=== PATIENT | male | born 1980 | race Caucasian/White ===

== ENCOUNTER 2016-10-26 01:38 | Emergency (ER) | payer OTHER ==
[~2016-10-26] VITALS: Ht 190.5 cm; Wt 127.1 kg
[2016-10-26 01:43] VITALS: TEMP 36.5; Ht 190.5 cm; Wt 127.1 kg
[2016-10-26] MEDS ORDERED: SODIUM CHLORIDE 0.9% 1000ML 2,000 ML IV STA (01:50)
[2016-10-26 02:01] VITALS: O2SAT 93
[2016-10-26 02:23] LABS: BASO % 0.5 %; BASO ABS # 0.03 K/uL (0-0.2); COMPLETE YES; EOS % 3.5 %; HEMATOCRIT 38.3 % (42-52); IG% 0.5 %; LYMPH % 27.4 %; LYMPH ABS # 1.71 K/uL (1.2-3.4); MEAN CELL VOLUME 85.5 fL (80-100); MEAN CORPUSCULAR HEMOGLOBIN 29.7 pg (25-34); MEAN CORPUSCULAR HGB CONC 34.7 g/dl (32-36); MEAN PLATELET VOLUME 10.8 fL (7.4-10.4); MONO % 5.9 %; NEUT % 62.2 %; PLATELET COUNT 215 K/uL (130-400); RED BLOOD COUNT 4.48 M/uL (4.7-6.1); WHITE BLOOD COUNT 6.23 K/uL (4.8-10.8)
[2016-10-26 02:42] LABS: ALT/SGPT 65 U/L (12-78); BLOOD UREA NITROGEN 15 mg/dl (7-18); BUN/CREATININE RATIO 15.6 (10-20); CALCIUM 8.2 mg/dl (8.5-10.1); CARBON DIOXIDE 25 mmol/L (21-32); CHLORIDE 105 mmol/L (98-107); CREATININE 0.99 mg/dl (0.60-1.40); GLUCOSE 134 mg/dl (70-99); SODIUM 142 mmol/L (136-145)
[2016-10-26 02:45] LABS: POTASSIUM 3.7 mmol/L (3.5-5.1)
[2016-10-26 02:46] LABS: ALKALINE PHOSPHATASE 50 U/L (45-117)
[2016-10-26 02:51] LABS: AST/SGOT 33 U/L (15-37); MAGNESIUM 2.2 mg/dl (1.8-2.4)
[2016-10-26 02:54] LABS: ACETAMINOPHEN < 2 ug/ml (10-30)
[2016-10-26 04:14] LABS: URINE APPEARANCE CLEAR (CLEAR); URINE BILIRUBIN NEG (NEG); URINE COLOR YELLOW; URINE NITRITE NEG (NEG); URINE SPECIFIC GRAVITY 1.023 (1.000-1.030); UROBILINOGEN NEG (NEG); ZZUR CULT IF INDIC CLEAN CATCH NO
--- NOTE | 2016-10-26 04:15 | EMERGENCY ROOM VISIT NOTE ---
History Report prepared by Marisolibmunira: Katheryn Delatorre Under the Supervision of: Dr. Martina Dale M.D. First contact with patient: 01:48 Chief Complaint: OVERDOSE (ACCIDENTAL) Stated Complaint: OVERDOSE Nursing Triage Summary: pt found at home on the toilet unresponsive by girlfriend. upon police arrival pt was unresponsive and cyanotic. EMS arrival pt with agonal breathing, administered 1mg Narcan spray in each nostril. pt awoke and was oriented. pt admits to being out drinking tonight. states he had 4 drinks and found 2 bags of heroin in the bathroom. pt states he snorted both bags tonight. hx heroin use over 1 year ago 5-10 bags per day then. has been clean for over a year. denies trying to hurt himself History of Present Illness The patient is a 36 year old male who presents to the Emergency Room via EMS to be evaluated for a heroin overdose this evening. Per nursing staff, the patient found two bags of heroin at a bar while drinking alcohol. When he went home, he snorted both bags on the toilet. The patient admits that he was under the influence of alcohol and thought that it was a good idea. He was found unresponsive on the toilet by his girlfriend. Upon EMS arrival, the patient was unresponsive and EMS administered a spray of Narcan in each nostril. The patient woke up at that time and was brought to the ED. There was no CPR involved. The patient admits that he has a history of drug use, but he has not used hard drugs in over 5 years. He admits to using some marijuana a couple of days ago. Currently, he is feeling very thirsty but otherwise has no complaints. He was not trying to hurt himself by using the heroin. Source of History: patient, nursing staff Onset: today Position: other (Global) Quality: other (heroin) Timing: other (episode) Modifying Factors (Relieving): other (Narcan) Note: Other symptoms: thirsty Review of Systems See HPI for pertinent positives & negatives. A total of 10 systems reviewed and were otherwise negative. Past Medical & Surgical Medical Problems: (1) Dental caries (2) Impetigo (3) Pharyngitis Family History Patient reports no known family medical history. Social History Smoking Status: Never Smoker Alcohol Use: occasionally Drug Use: heroin, marijuana Marital Status: in relationship Occupation Status: employed Current/Historical Medications No Active Prescriptions or Reported Meds Allergies Coded Allergies: No Known Allergies (Unverified , 10/20/14) Physical Exam Vital Signs Date Time Temp Pulse Resp B/P Pulse Ox O2 Delivery O2 Flow Rate FiO2 10/26/16 05:43 83 18 120/59 96 10/26/16 05:00 77 13 151/75 93 Room Air 2.0 10/26/16 04:27 88 12 137/74 93 Room Air 2.0 10/26/16 02:47 103 18 114/61 94 Room Air 2.0 10/26/16 02:01 93 Nasal Cannula 2.0 10/26/16 02:01 88 Room Air 10/26/16 01:54 105 10/26/16 01:43 36.5 112 18 115/76 93 Room Air 10/26/16 01:43 93 Room Air 10/26/16 01:41 88 12 115/76 94 Nasal Cannula 2.0 Physical Exam Vital signs reviewed. General: Well-appearing 36 year old male, in no significant distress. HEENT: No scleral icterus, PERRLA, neck supple. Atraumatic. Cardiovascular: Regular rate and rhythm, no extra sounds. Pulmonary: Clear to auscultation bilaterally, normal work of breathing. Abdomen: Soft, nontender, nondistended, positive bowel sounds. Musculoskeletal: Atraumatic, no peripheral edema. Neurologic: Patient sedate but awakens to verbal stimuli, oriented x 3, full strength in all 4 extremities. Cranial nerves 2 through 12 grossly intact. Skin: Warm, dry, no rash Medical Decision & Procedures Laboratory Results 10/26/16 02:05 Red Blood Count 4.48, Mean Corpuscular Volume 85.5, Mean Corpuscular Hemoglobin 29.7, Mean Corpuscular Hemoglobin Concent 34.7, Mean Platelet Volume 10.8, Neutrophils (%) (Auto) 62.2, Lymphocytes (%) (Auto) 27.4, Monocytes (%) (Auto) 5.9, Eosinophils (%) (Auto) 3.5, Basophils (%) (Auto) 0.5, Neutrophils # (Auto) 3.87, Lymphocytes # (Auto) 1.71, Monocytes # (Auto) 0.37, Eosinophils # (Auto) 0.22, Basophils # (Auto) 0.03 10/26/16 02:05 Test 10/26/16 02:05 10/26/16 04:00 White Blood Count 6.23 K/uL (4.8-10.8) Red Blood Count 4.48 M/uL (4.7-6.1) Hemoglobin 13.3 g/dL (14.0-18.0) Hematocrit 38.3 % (42-52) Mean Corpuscular Volume 85.5 fL (80-100) Mean Corpuscular Hemoglobin 29.7 pg (25-34) Mean Corpuscular Hemoglobin Concent 34.7 g/dl (32-36) Platelet Count 215 K/uL (130-400) Mean Platelet Volume 10.8 fL (7.4-10.4) Neutrophils (%) (Auto) 62.2 % Lymphocytes (%) (Auto) 27.4 % Monocytes (%) (Auto) 5.9 % Eosinophils (%) (Auto) 3.5 % Basophils (%) (Auto) 0.5 % Neutrophils # (Auto) 3.87 K/uL (1.4-6.5) Lymphocytes # (Auto) 1.71 K/uL (1.2-3.4) Monocytes # (Auto) 0.37 K/uL (0.11-0.59) Eosinophils # (Auto) 0.22 K/uL (0-0.5) Basophils # (Auto) 0.03 K/uL (0-0.2) RDW Standard Deviation 40.8 fL (36.4-46.3) RDW Coefficient of Variation 13.1 % (11.5-14.5) Immature Granulocyte % (Auto) 0.5 % Immature Granulocyte # (Auto) 0.03 K/uL (0.00-0.02) Anion Gap 12.0 mmol/L (3-11) Est Creatinine Clear Calc Drug Dose 151.0 ml/min Estimated GFR () 114.7 Estimated GFR (Non- 99.0 BUN/Creatinine Ratio 15.6 (10-20) Calcium Level 8.2 mg/dl (8.5-10.1) Magnesium Level 2.2 mg/dl (1.8-2.4) Total Bilirubin 0.4 mg/dl (0.2-1) Direct Bilirubin < 0.1 mg/dl (0-0.2) Aspartate Amino Transf (AST/SGOT) 33 U/L (15-37) Alanine Aminotransferase (ALT/SGPT) 65 U/L (12-78) Alkaline Phosphatase 50 U/L (45-117) Total Protein 7.1 gm/dl (6.4-8.2) Albumin 4.0 gm/dl (3.4-5.0) Salicylates Level < 1.7 mg/dl (2.8-20) Acetaminophen Level < 2 ug/ml (10-30) Ethyl Alcohol mg/dL 22.0 mg/dl (0-3) Urine Color YELLOW Urine Appearance CLEAR (CLEAR) Urine pH 5.0 (4.5-7.5) Urine Specific [place] 1.023 (1.000-1.030) Urine Protein TRACE (NEG) Urine Glucose (UA) NEG (NEG) Urine Ketones NEG (NEG) Urine Occult Blood NEG (NEG) Urine Nitrite NEG (NEG) Urine Bilirubin NEG (NEG) Urine Urobilinogen NEG (NEG) Urine Leukocyte Esterase NEG (NEG) Urine WBC (Auto) 1-5 /hpf (0-5) Urine RBC (Auto) 0-4 /hpf (0-4) Urine Hyaline Casts (Auto) 0 /lpf (0-5) Urine Epithelial Cells (Auto) 10-20 /lpf (0-5) Urine Bacteria (Auto) NEG (NEG) Urine Crystals URIC ACID (NONE PRSENT) Urine Pathogenic Casts /lpf (0) Urine Opiates Screen POS (NEG) Urine Methadone, Qualitative NEG (NEG) Urine Barbiturates NEG (NEG) Urine Phencyclidine (PCP) Level NEG (NEG) Ur Amphetamine/Methamphetamine NEG (NEG) MDMA (Ecstasy) Screen NEG (NEG) Urine Benzodiazepines Screen NEG (NEG) Urine Cocaine Metabolite POS (NEG) Urine Marijuana (THC) POS (NEG) Laboratory results per my review. Medications Administered Medications (Trade) Dose Ordered Sig/Dalia Route Start Time Stop Time Status Last Admin Dose Admin Sodium Chloride (Nss 1000ml) 2,000 ml @ 999 mls/hr Q2H1M STAT IV 10/26/16 01:50 10/26/16 03:50 DC 10/26/16 02:15 999 MLS/HR ECG Indication: toxicologic Rate (beats per minute): 102 Rhythm: sinus tachycardia Findings: no acute ischemic change, no ectopy, other (previous inferior infarct ) ED Course 0148: The patient was evaluated in room B7. A complete history and physical examination was performed. 0150: Ordered NSS 2000 ml @ 999 mls/hr IV. 0537: Upon reevaluation, the patient was resting comfortably. I discussed findings with the patient. He verbalized agreement of the treatment plan. The patient was discharged home. Medical Decision Differential diagnosis: Etiologies such as toxicologic, infection, hypoglycemia, electrolyte abnormalities, cardiac sources, intracerebral event, neurologic, as well as others were entertained. This pt was evaluated and appeared to be in no distress. He was awake and talking on my exam. Pt VSS remain stable. Tox screen is positive for cocaine and opioids. Pt has a low level of ETOH in his blood. He was hydrated and observed for several hours. He was informed of the findings and d/c to a ride. Impression Primary Impression: Drug overdose, multiple drugs Scribe Attestation The scribe's documentation has been prepared under my direction and personally reviewed by me in its entirety. I confirm that the note above accurately reflects all work, treatment, procedures, and medical decision making performed by me. Departure Information Dispostion Home / Self-Care Prescriptions No Active Prescriptions or Reported Meds Referrals No Doctor, Assigned (PCP) Patient Instructions [facility] Additional Instructions Diagnosis: Multiple substance overdose Please refrain from using any illicit substances. Use alcohol in moderation. Drink plenty of clear fluids. Follow-up with your physician this week for reevaluation. Return to the ER for worsening of symptoms or any medical concerns. Problem Qualifiers Primary Impression: Drug overdose, multiple drugs Encounter type: initial encounter Injury intent: accidental or unintentional Qualified Codes: T50.901A - Poisoning by unspecified drugs, medicaments and biological substances, accidental (unintentional), initial encounter
[2016-10-26 04:18] LABS: MANUAL MICROSCOPIC REQUIRED? NO; REVIEW REQ? YES
[2016-10-26 04:31] LABS: BENZODIAZEPINE, URINE NEG (NEG); COCAINE,URINE POS (NEG); PHENCYCLIDINE, URINE NEG (NEG)
[2016-10-26 05:43] VITALS: BP 120/59; PULSE 83; O2SAT 96
[2016-10-31 15:34] LABS: COCAINE, URINE 446 NG/ML (CUTOFF=100); COD UR 475 NG/ML (CUTOFF=50); HYDROCOD UR NEGATIVE NG/ML (CUTOFF=50); HYDROMOR UR NEGATIVE NG/ML (CUTOFF=50); MORPHINE UR >20000 NG/ML (CUTOFF=50); NORHYDROCODONE CONF UR NEGATIVE NG/ML (CUTOFF=50); OXYMORPH UR NEGATIVE NG/ML (CUTOFF=50)
== END 2016-10-26 05:45 | disposition home or self-care (01) ==
LOC: EDBD 01:38 → C.EDB 01:40
DX: T40.1X1A Poisoning by heroin, accidental (unintentional), initial encounter (principal); T40.5X1A Poisoning by cocaine, accidental (unintentional), initial encounter; T40.2X1A Poisoning by other opioids, accidental (unintentional), initial encounter

== ENCOUNTER 2017-10-08 12:42 | Emergency (ER) | payer OTHER ==
[~2017-10-08] VITALS: Ht 190.5 cm; Wt 112.7 kg
[2017-10-08 12:55] VITALS: TEMP 36.6; Ht 190.5 cm; Wt 112.7 kg
--- NOTE | 2017-10-08 13:47 | DIAGNOSTIC IMAGING REPORT ---
L ANKLE MIN 3 VIEWS ROUTINE CLINICAL HISTORY: Left ankle pain and swelling following fall 3 weeks ago. COMPARISON: None FINDINGS: Alignment of left ankle is anatomic. There is no acute fracture. Talar dome is intact. There is moderate lateral ankle soft tissue swelling. There is a suspected subtle 3.6 cm lesion within the distal lateral shaft of the left tibia. This likely has a thin sclerotic margin. Exact measurements of this lesion are difficult to obtain on this examination. This is likely benign. IMPRESSION: 1. No acute fracture or dislocation of the left ankle. 2. Moderate lateral ankle soft tissue swelling. 3. Suspected subtle distal left tibial lesion which measures approximately 3.6 cm. This has benign imaging characteristics however left ankle radiographs in 6 months are recommended to ensure stability. Electronically signed by: Brian Cifuentes M.D. 10/08/2017 1:46 PM Dictated Date/Time: 10/08/2017 1:43 PM
[2017-10-08] MEDS ORDERED: IBUP-1050 PO (13:48)
--- NOTE | 2017-10-08 13:51 | DIAGNOSTIC IMAGING REPORT ---
L SHOULDER MIN 2 VIEWS ROUTINE CLINICAL HISTORY: anterior shoulder pain pain COMPARISON: None. DISCUSSION: The bones and joint spaces appear intact. There is no evidence of fracture, dislocation or bony disease. Linear lucency overlying the distal aspect of the clavicle felt to represent overlap artifact. This is now well seen on ankle projection. Glenohumeral joint is unremarkable. IMPRESSION: No acute process. The above report was generated using voice recognition software. It may contain grammatical, syntax or spelling errors. Electronically signed by: Ede Marina M.D. 10/08/2017 1:50 PM Dictated Date/Time: 10/08/2017 1:49 PM
--- NOTE | 2017-10-08 14:00 | EMERGENCY ROOM VISIT NOTE ---
ED Visit Note First contact with patient: 13:03 CHIEF COMPLAINT: Left Ankle and shoulder pain HISTORY OF PRESENT ILLNESS: This 37-year-old male patient presents to the emergency department 3 weeks after sustaining an injury to the left ankle and foot and left shoulder when he slipped and fell from standing, landing on the left side. The patient complains of pain along the outside and from of the ankle. The patient denies pain of the foot. The patient rates the pain as sharp with swelling worse after weight bearing all day at work and /10. The patient is able to bear weight on the foot. Constant pain, worse with movement , weight bearing, and the dependent position. No knee pain, the patient is able to move their toes. No numbness or weakness of the foot, no laceration. The patient has not had a previous fracture to this ankle. The patient has taken intermittent Tylenol and ibuprofen for the pain. The patient states he also landed on the left shoulder, and complains of pain there. He states the pain is in the anterior aspect of the shoulder, worse on deep palpation and with abduction. The patient states this pain seems to be improving, however is still concerning for him. The patient denies any weakness, numbness or tingling , decreased sensation, or other concerning symptoms regarding the shoulder. REVIEW OF SYSTEMS: A 6 system review of systems was completed with positives and pertinent negatives listed in the HPI. ALLERGIES: None MEDICATIONS: Tylenol, ibuprofen PMH: None SOCIAL HISTORY: The patient lives locally with family. He admits to smoking cigarettes daily, occasional alcohol use, and occasional smoking marijuana. PHYSICAL EXAM: Vital Signs: Reviewed Nurse's notes, vital signs stable. GENERAL : Is a 37-year-old white male, no acute distress, but appears in pain, well- developed, well-nourished. MENTAL STATUS: Alert, oriented to person place and time, and cooperative. MUSCULOSKELETAL: The left ankle is very minimally swollen and tender over the lateral malleolus, but the skin is intact and there is no ligamentous instability. There is no fifth metatarsal tenderness. There is no tenderness over the rest of the foot. There is no calf or tibia/fibular tenderness. There is no visual deformity. The foot and toes are warm and well- perfused. Dorsalis pedis pulse 2+. Sensation to pain and light touch is intact. Capillary refill less than 2 seconds. There is no deformity in the contour of the left shoulder and there are no rex deformities noted. There is no sulcus sign. There is tenderness over the anterior aspect of the shoulder. The patient's range of motion is full, however painful. Supraspinatus strength 5 /5. There is no clavicle tenderness. No tenderness of the humerus, elbow, wrist , or hand. Silo Operator strength 5/5. Radial pulse 2+. NECK: No tenderness to palpation over the cervical spine. HEART: Regular rate and rhythm without murmurs gallops or rubs. LUNGS: Clear to auscultation bilaterally without wheezes, rales or rhonchi. No accessory muscle use. No retractions. RADIOLOGY: L ANKLE MIN 3 VIEWS ROUTINE CLINICAL HISTORY: Left ankle pain and swelling following fall 3 weeks ago. COMPARISON: None FINDINGS: Alignment of left ankle is anatomic. There is no acute fracture. Talar dome is intact. There is moderate lateral ankle soft tissue swelling. There is a suspected subtle 3.6 cm lesion within the distal lateral shaft of the left tibia. This likely has a thin sclerotic margin. Exact measurements of this lesion are difficult to obtain on this examination. This is likely benign. IMPRESSION: 1. No acute fracture or dislocation of the left ankle. 2. Moderate lateral ankle soft tissue swelling. 3. Suspected subtle distal left tibial lesion which measures approximately 3.6 cm. This has benign imaging characteristics however left ankle radiographs in 6 months are recommended to ensure stability. Electronically signed by: Brian Cifuentes M.D. 10/08/2017 1:46 PM Dictated Date/Time: 10/08/2017 1:43 PM L SHOULDER MIN 2 VIEWS ROUTINE CLINICAL HISTORY: anterior shoulder pain pain COMPARISON: None. DISCUSSION: The bones and joint spaces appear intact. There is no evidence of fracture, dislocation or bony disease. Linear lucency overlying the distal aspect of the clavicle felt to represent overlap artifact. This is now well seen on ankle projection. Glenohumeral joint is unremarkable. IMPRESSION: No acute process. The above report was generated using voice recognition software. It may contain grammatical, syntax or spelling errors. Electronically signed by: Ede Marina M.D. 10/08/2017 1:50 PM Dictated Date/Time: 10/08/2017 1:49 PM EMERGENCY DEPARTMENT COURSE: I examined the patient. He presents today complaining of pain in his left ankle and shoulder from a fall 3 weeks ago. He has already seen urgent care, where radiographs were deemed unnecessary and he was given a splint to wear for comfort. X-rays of the left ankle and shoulder were reviewed by myself and read by radiology and reveal no acute bony abnormality, however, there was note of a lesion on the left tibia which appears to be benign, however, the radiologist recommended follow-up in 6 months. The patient was encouraged to continue to use his splint, ice, and OTC pain relief. Discharge instructions were reviewed and the patient was encouraged to follow-up with his PCP regarding the lesion noted on the tibia. The patient was discharged home in good condition. DIFFERENTIAL DIAGNOSIS: fracture, sprain, strain, contusion, malignancy, and others DIAGNOSIS: Left ankle sprain, left shoulder contusion, fall Problem List Medical Problems: (1) Dental caries Status: Resolved (2) Impetigo Status: Resolved (3) Pharyngitis Status: Resolved Current/Historical Medications Scheduled PRN Ibuprofen (Advil), 200-600 MG PO Q4H PRN for Pain Allergies Coded Allergies: No Known Allergies (Unverified , 10/08/17) Vital Signs Date Time Temp Pulse Resp B/P (MAP) Pulse Ox O2 Delivery O2 Flow Rate FiO2 10/08/17 14:33 80 17 140/86 96 10/08/17 12:55 36.6 74 18 135/81 96 Room Air Departure Information Impression Primary Impression: Left ankle sprain Additional Impression: Contusion of left shoulder Dispostion Home / Self-Care Condition GOOD Referrals Nohemi Edward D.O. (PCP) Patient Instructions ED Contusion Shoulder, ED Sprain Ankle, [facility] Additional Instructions ORTHOPEDIC INSTRUCTIONS: You were seen in the ED today for left ankle pain and left shoulder pain. X- rays were negative for acute fracture or injury. Of note, there was a lesion of the left tibia, approximately 3.6 cm in length. You were given the x-ray report to take to your PCP for further evaluation and management. The radiologist did recommend follow-up x-rays in 6 months. Ibuprofen(Motrin, Advil) may be used for fever or pain. Use 600mg every six hours as needed. Take with food. Avoid using more than 2400mg in a 24 hour period. Do not use 2400mg per day for more than three consecutive days without physician direction. Prolonged inappropriate use can lead to stomach upset or ulcers. (AND/OR) Acetaminophen(Tylenol) may be used for fever or pain. Use 1000mg every six hours as needed. Avoid using more than 3000mg in a 24 hour period. Ice compresses for 20 minutes at a time four times daily for 2-3 days. Use the brace you have been provided with for comfort. Rest and elevate your injury. Return to the ER immediately for any numbness, tingling, severe pain, extreme swelling in the extremity or as needed. Follow-up with your primary care physician in 2 to 3 days for a recheck of your current condition. Problem Qualifiers Primary Impression: Left ankle sprain Encounter type: initial encounter Involved ligament of ankle: unspecified ligament Qualified Codes: S93.402A - Sprain of unspecified ligament of left ankle, initial encounter Additional Impression: Contusion of left shoulder Encounter type: initial encounter Qualified Codes: S40.012A - Contusion of left shoulder, initial encounter
[2017-10-08 14:33] VITALS: BP 140/86; PULSE 80; O2SAT 96
== END 2017-10-08 14:34 | disposition home or self-care (01) ==
LOC: C.EDB 12:42 → C.EDD 14:34
DX: S93.402A Sprain of unspecified ligament of left ankle, initial encounter (principal); S40.012A Contusion of left shoulder, initial encounter; W01.0XXA Fall on same level from slipping, tripping and stumbling without subsequent striking against object, initial encounter; F17.200 Nicotine dependence, unspecified, uncomplicated

== ENCOUNTER 2017-10-23 11:28 | Emergency (ER) | payer OTHER ==
[~2017-10-23] VITALS: Ht 190.5 cm; Wt 124.5 kg
[~2017-10-23 11:28] MED LIST: IBUP-1050 PO
[2017-10-23 11:36] VITALS: Ht 190.5 cm; Wt 124.5 kg
[2017-10-23] MEDS ORDERED: METHYLPREDNISOLONE 125 MG VIAL IV STA (12:04)
[2017-10-23] MEDS ORDERED: PSEUDOEPHEDRINE HCL 30 MG TAB PO STA (12:04)
[2017-10-23] MEDS ORDERED: SODIUM CHLORIDE 0.9% 1000ML 1,000 ML IV STA (12:04)
[2017-10-23] MEDS ORDERED: ACETAMINOPHEN 500 MG TAB PO STA (12:04)
[2017-10-23] MEDS ORDERED: ALBUT/IPRATROP 3MG/0.5MG NEB 3 ML VIAL INH STA (12:04)
[2017-10-23] MEDS ORDERED: BENZONATATE 100MG CAP PO ONE (12:15)
[2017-10-23 12:44] LABS: BASO % 0.2 %; BASO ABS # 0.01 K/uL (0-0.2); EOS % 2.3 %; EOS ABS # 0.15 K/uL (0-0.5); HEMATOCRIT 41.8 % (42-52); HEMOGLOBIN 14.5 g/dL (14.0-18.0); IG# 0.03 K/uL (0.00-0.02); LYMPH % 10.4 %; LYMPH ABS # 0.68 K/uL (1.2-3.4); MEAN CELL VOLUME 87.8 fL (80-100); MEAN CORPUSCULAR HEMOGLOBIN 30.5 pg (25-34); MEAN CORPUSCULAR HGB CONC 34.7 g/dl (32-36); MEAN PLATELET VOLUME 10.5 fL (7.4-10.4); MONO % 8.7 %; MONO ABS # 0.57 K/uL (0.11-0.59); NEUT % 77.9 %; PLATELET COUNT 196 K/uL (130-400); RED CELL DISTRIBUTION WIDTH CV 12.8 % (11.5-14.5); RED CELL DISTRIBUTION WIDTH SD 41.1 fL (36.4-46.3); WHITE BLOOD COUNT 6.54 K/uL (4.8-10.8)
[2017-10-23 13:02] LABS: CALCIUM 8.9 mg/dl (8.5-10.1); CREATININE 0.88 mg/dl (0.60-1.40); POTASSIUM 3.9 mmol/L (3.5-5.1)
[2017-10-23 13:07] LABS: TOTAL PROTEIN 7.8 gm/dl (6.4-8.2)
[2017-10-23 13:18] LABS: INFLUENZA B ANTIGEN Neg for Influ B (NEG)
[2017-10-23 14:01] VITALS: BP 105/63; PULSE 91; TEMP 37.1; O2SAT 95
--- NOTE | 2017-10-23 14:03 | DIAGNOSTIC IMAGING REPORT ---
CHEST 2 VIEWS ROUTINE CLINICAL HISTORY: EVALUATE RESPIRATORY DISTRESS.DYSPNEA dyspnea COMPARISON STUDY: No previous studies for comparison. FINDINGS: The bones soft tissues and hemidiaphragms are normal. The cardiomediastinal silhouette is normal. The lungs are clear. The pulmonary vasculature is normal. IMPRESSION: Negative chest. The above report was generated using voice recognition software. It may contain grammatical, syntax or spelling errors. Electronically signed by: Ede Marina M.D. 10/23/2017 2:01 PM Dictated Date/Time: 10/23/2017 2:00 PM
--- NOTE | 2017-10-23 14:04 | DIAGNOSTIC IMAGING REPORT ---
L FOOT MIN 3 VIEWS ROUTINE HISTORY: 37 years-old Male L foot pain acute left-sided foot pain COMPARISON: Left ankle radiographs 10/08/2017 TECHNIQUE: 3 views of the left foot FINDINGS: Mild hallux valgus deformity. There is no acute fracture, subluxation, stress fracture or significant degenerative changes identified. Minimal dorsal spurring about the midfoot. Tiny opacified noted at the Achilles insertion site about the calcaneus. Previously described ill-defined probable benign appearing lesion of the distal tibia is better seen on comparison ankle radiograph. There is no opaque foreign body. IMPRESSION: 1. No acute fracture or subluxation. 2. No significant degenerative changes. The above report was generated using voice recognition software. It may contain grammatical, syntax or spelling errors. Electronically signed by: Jeremy Lopez M.D. 10/23/2017 2:02 PM Dictated Date/Time: 10/23/2017 2:00 PM
[2017-10-23] MEDS ORDERED: OSEL75CA12 PO (14:17)
[2017-10-23] MEDS ORDERED: PRED20TA2 PO (14:17)
[2017-10-23] MEDS ORDERED: BENZ100C18 PO (14:17)
--- NOTE | 2017-10-23 21:41 | EMERGENCY ROOM VISIT NOTE ---
ED Visit Note First contact with patient: 11:53 Chief Complaint: Trouble breathing, headache and cough. History of Present Illness: Mr. Mcdaniel is a 37-year-old white male who ambulates into the ED complaining of cough, shortness of breath, lightheadedness , headache and fever. Historically patient reports he has a history of bronchitis, pneumonia and emphysema. Patient reports his symptoms started approximately 7 days ago with cough, difficulty breathing and lightheadedness. 3 days ago he was seen at a local urgent care center was diagnosed with bronchitis. He was placed on a 5 day course of Zithromax. He reports since taking the Zithromax he has had no relief of his symptoms. Patient reports yesterday he started developing fevers, a bifrontal headache and chest tightness. Currently he describes his bifrontal discomfort as a pressure and sometimes throbbing sensation. He rates this discomfort 5/10. His pain is nonradiating. His pain worsens with cough. He has not identified any alleviating factors related to the pain. He has been using [id number] ibuprofen and acetaminophen without relief of his discomfort as well as the Zithromax. Additionally he is complaining of chest tightness over the anterior chest. He rates this discomfort 7/10. The pain is nonradiating. The pain is worse with deep inspiration and cough. He has not identified any alleviating factors related to the pain. He has used the medications as noted above without relief of his discomfort. Associated with his symptoms once again he reports she's been having fevers, chills, wheezing, shortness of breath decreased appetite He denies skin eruptions, skin color changes, dizziness, visual changes, hearing changes, difficulty speaking, difficulty swallowing, difficulty walking/ coordinating body movements, recent head trauma, ear drainage, bloody nasal drainage, hematemesis, palpitations, orthopnea, dependent edema, previous clots , claudication, recent surgery/inactivity/extended travel, posttussive vomiting , abdominal pain, nausea, vomiting, urinary symptoms. Additionally patient reports she was seen in this emergency department on October 08 with ankle pain and was diagnosed with a sprain. He reports since being discharged from the ER the pain has on into his foot predominantly over the lateral aspect of the posterior foot over the calcaneus area. He requested a foot x-ray to rule out fractures of the foot. Review of Systems: As noted above in history of present illness. All body systems were reviewed and found to be negative as noted above. Past Medical History: As noted above. Current Medications: Patient denies. Allergies to Medications: Patient denies. Social History: Patient is currently employed; he feels safe in his home environment; he admits to tobacco and alcohol use. Physical Examination: Vital Signs: Date Time Temp Pulse Resp B/P (MAP) Pulse Ox O2 Delivery O2 Flow Rate FiO2 10/23/17 14:01 37.1 91 18 105/63 95 Room Air 10/23/17 12:21 98 10/23/17 11:36 37.8 102 20 123/78 96 Room Air GENERAL: 37-year-old male in mild to moderate distress due to symptoms, nontoxic -appearing, afebrile and hemodynamically stable. NEUROLOGICAL: Awake, alert and oriented to person, place and time. Answering questions appropriately and following commands. Normal gait. Good hand eye coordination. No focal motor sensory deficits. SKIN: Warm, dry and pink. No soft tissue eruptions or trauma noted. HEENT: Atraumatic and normocephalic. No erythema or tenderness over the frontal or maxillary sinuses. Auditory canals are pink and patent. External ears are nontender. Tympanic membranes are not erythematous or edematous. PERRLA. Sclera white and conjunctiva pink without drainage. No drainage from naris with audible congestion. Oral cavity moist and pink. Airways patent. Uvula midline. Pharynx is nonerythematous or edematous. Speech normal. No lymphadenopathy. Trachea midline. No jugular venous distention. BACK: No tenderness over the bony spine. Range of motion of the cervical spine. No meningismus. No CVA tenderness. THORAX: Lungs sounds are mild bilateral lower wheezing. Poor air movement in the lower degroot also. No rales or rhonchi. Symmetrical chest wall. Mild to moderate tenderness over the anterior chest wall without bony deformity, bony crepitus or subcutaneous air. HEART: Tachycardic rate and rhythm. No gallops, rubs or murmurs are appreciated. PMI is not displaced. No lifts, heaves or thrills. ABDOMEN: Flat, soft and nontender. Positive bowel sounds in all quadrants. No guarding, rigidity or organomegaly. EXTREMITIES: Moves all extremities well on command and with purpose. All distal neurovascular statuses are intact and equal bilaterally. No calf tenderness or cords. ED Course: Patient is assessed as noted above. Patient's medication list was reviewed. Laboratory Testing: Test 10/23/17 12:23 10/23/17 12:30 10/23/17 12:37 10/23/17 13:00 Range/Units White Blood Count 6.54 4.8-10.8 K/uL Red Blood Count 4.76 4.7-6.1 M/uL Hemoglobin 14.5 14.0-18.0 g/dL Hematocrit 41.8 42-52 % Mean Corpuscular Volume 87.8 80-100 fL Mean Corpuscular Hemoglobin 30.5 25-34 pg Mean Corpuscular Hemoglobin Concent 34.7 32-36 g/dl Platelet Count 196 130-400 K/uL Mean Platelet Volume 10.5 7.4-10.4 fL Neutrophils (%) (Auto) 77.9 % Lymphocytes (%) (Auto) 10.4 % Monocytes (%) (Auto) 8.7 % Eosinophils (%) (Auto) 2.3 % Basophils (%) (Auto) 0.2 % Neutrophils # (Auto) 5.10 1.4-6.5 K/uL Lymphocytes # (Auto) 0.68 1.2-3.4 K/uL Monocytes # (Auto) 0.57 0.11-0.59 K/uL Eosinophils # (Auto) 0.15 0-0.5 K/uL Basophils # (Auto) 0.01 0-0.2 K/uL RDW Standard Deviation 41.1 36.4-46.3 fL RDW Coefficient of Variation 12.8 11.5-14.5 % Immature Granulocyte % (Auto) 0.5 % Immature Granulocyte # (Auto) 0.03 0.00-0.02 K/uL Sodium Level 133 136-145 mmol/L Potassium Level 3.9 3.5-5.1 mmol/L Chloride Level 101 98-107 mmol/L Carbon Dioxide Level 24 21-32 mmol/L Anion Gap 8.0 3-11 mmol/L Blood Urea Nitrogen 12 7-18 mg/dl Creatinine 0.88 0.60-1.40 mg/dl Est Creatinine Clear Calc Drug Dose 166.5 ml/min Estimated GFR () 129.0 Estimated GFR (Non- 111.3 BUN/Creatinine Ratio 13.4 10-20 Random Glucose 92 70-99 mg/dl Calcium Level 8.9 8.5-10.1 mg/dl Total Bilirubin 0.9 0.2-1 mg/dl Aspartate Amino Transf (AST/SGOT) 21 15-37 U/L Alanine Aminotransferase (ALT/SGPT) 42 12-78 U/L Alkaline Phosphatase 67 45-117 U/L Total Creatine Kinase 84 39-308 U/L Creatine Kinase MB 1.0 0.5-3.6 ng/ml Creatine Kinase MB Ratio 1.2 0-3.0 Total Protein 7.8 6.4-8.2 gm/dl Albumin 4.0 3.4-5.0 gm/dl Globulin 3.8 2.5-4.0 gm/dl Albumin/Globulin Ratio 1.1 0.9-2 Influenza Type A Antigen POS for Influ A NEG Influenza Type B Antigen Neg for Influ B NEG Bedside D-Dimer 444 0-450 ng/mlFEU Bedside Troponin I < 0.030 0-0.045 ng/ml Urine Color YELLOW Urine Appearance CLEAR CLEAR Urine pH 5.0 4.5-7.5 Urine Specific [place] 1.022 1.000-1.030 Urine Protein NEG NEG Urine Glucose (UA) NEG NEG Urine Ketones NEG NEG Urine Occult Blood NEG NEG Urine Nitrite NEG NEG Urine Bilirubin NEG NEG Urine Urobilinogen NEG NEG Urine Leukocyte Esterase NEG NEG Chest X-Rays: Was read by myself and the radiologist and shows no acute infiltrates, effusions or pneumothorax. Normal heart silhouette and bony anatomy. Left Foot X-Rays: Was read by myself and the radiologist showing no acute fractures or dislocations. Patient was hydrated with normal saline, he received an albuterol/Atrovent nebulizer breathing treatment, 1 g of acetaminophen by mouth, 125 mg of Solu- Medrol IV, 200 mg of Tessalon Perles by mouth and 60 mg of the pseudoephedrine by mouth. Patient was reassessed multiple times during his stay in the emergency department. Immediately after his breathing treatment his lungs are reassessed and had improvement air movement and resolution of all wheezing. Patient's case was reviewed with Dr. Cid; we agreed on diagnostic approach, treatment, disposition and plan. Patient was educated about today's findings and instructed on his treatment plan ; he verbalized understanding and agreement with this plan. Clinical Impression: Positive influenza A. Upper respiratory tract symptoms. Decision-Making: Initially my differential diagnosis I considered emphysema exacerbation, influenza exacerbation, upper respiratory tract infection, pulmonary embolism, acute coronary syndrome and other causes. Disposition: Patient discharged home in stable condition; prior to departure he was reassessed and subjectively reported he was feeling much better. He reports he still had sinus pressure but had resolution of chest discomfort and shortness of breath. Plan: Patient was encouraged to continue his antibiotics until completed. Patient was all encouraged to alternate ibuprofen and acetaminophen for persistent pain or fevers. Patient was prescribed an albuterol inhaler; 2 puffs with spacer every 6 hours for 5 days and as needed for wheezing, severe coughing episodes or shortness of breath. Patient was prescribed on prednisone 60 mg once a day for the next 5 days. Patient was prescribed Tessalon Perles 100 mg every 8 hours as needed for cough. Patient was prescribed Tamiflu 75 mg 2 times a day for 5 days. Patient was encouraged to consider using an [id number] decongestant like pseudoephedrine. Patient is encouraged to stop smoking until feeling better. Patient was encouraged to in increase clear fluids. Patient was encouraged to follow-up with PCP for recheck in 2-3 days. Patient was encouraged return ED for worsening symptoms, uncontrolled fevers, uncontrolled shortness of breath/wheezing, vomiting, coughing up blood or any new/concerning symptoms.
== END 2017-10-23 14:35 | disposition home or self-care (01) ==
LOC: C.EDB 11:30 → C.EDA 14:35
DX: J11.1 Influenza due to unidentified influenza virus with other respiratory manifestations (principal); Z87.01 Personal history of pneumonia (recurrent); J43.9 Emphysema, unspecified; Z72.0 Tobacco use

== ENCOUNTER 2018-01-31 07:39 | Emergency (ER) | payer OTHER ==
[~2018-01-31] VITALS: Ht 190.5 cm; Wt 115.7 kg
[~2018-01-31 07:39] MED LIST changes: -IBUP-1050 PO; +PRED20TA2 PO
[2018-01-31 07:42] VITALS: TEMP 36.7; Ht 190.5 cm; Wt 115.7 kg
[2018-01-31] MEDS ORDERED: ONDANSETRON INJ 2 MG/ML 2 ML VIAL IV STA (08:15)
[2018-01-31] MEDS ORDERED: KETOROLAC TROMETHAMINE 30 MG/ML VIAL IV STA (08:15)
[2018-01-31] MEDS ORDERED: SODIUM CHLORIDE 0.9% 1000ML 1,000 ML IV STA (08:15)
[2018-01-31 08:57] LABS: BASO % 0.1 %; BASO ABS # 0.01 K/uL (0-0.2); EOS % 0.5 %; EOS ABS # 0.05 K/uL (0-0.5); HEMOGLOBIN 14.1 g/dL (14.0-18.0); IG# 0.02 K/uL (0.00-0.02); LYMPH % 4.5 %; LYMPH ABS # 0.41 K/uL (1.2-3.4); MEAN CELL VOLUME 86.5 fL (80-100); MEAN CORPUSCULAR HEMOGLOBIN 29.7 pg (25-34); MEAN CORPUSCULAR HGB CONC 34.4 g/dl (32-36); MONO ABS # 0.28 K/uL (0.11-0.59); NEUT % 91.7 %; NEUT ABS # 8.44 K/uL (1.4-6.5); PLATELET COUNT 180 K/uL (130-400); RED CELL DISTRIBUTION WIDTH CV 12.8 % (11.5-14.5); RED CELL DISTRIBUTION WIDTH SD 40.8 fL (36.4-46.3); WHITE BLOOD COUNT 9.21 K/uL (4.8-10.8)
[2018-01-31 09:10] LABS: ALBUMIN 3.9 gm/dl (3.4-5.0); CALCIUM 8.4 mg/dl (8.5-10.1); CREATININE 0.81 mg/dl (0.60-1.40); POTASSIUM 3.3 mmol/L (3.5-5.1)
[2018-01-31 09:13] LABS: TOTAL PROTEIN 6.9 gm/dl (6.4-8.2)
[2018-01-31] MEDS ORDERED: ONDA4TAB10 SL (10:02)
[2018-01-31 10:19] VITALS: BP 123/66; PULSE 83; O2SAT 95
--- NOTE | 2018-01-31 10:29 | EMERGENCY ROOM VISIT NOTE ---
History First contact with patient: 07:46 Chief Complaint: VOMITING Stated Complaint: VOMITTING FOR 12 HRS STRAIGHT ABOUT 30 TIMES Nursing Triage Summary: Pt has been "nonstop vomiting and having diarrhea since 2199 last evening". States he ate a alvaro lettuce salad yesterday afternoon, thinks he has e.coli. Abdominal pain 03/09. History of Present Illness The patient is a 38 year old male who presents to the Emergency Room with complaints of generalized abdominal pain, nausea, vomiting and diarrhea since 10 PM last evening. The patient reports that he ate a alvaro salad around 3 PM yesterday afternoon. The patient reports multiple episodes of vomiting and diarrhea overnight. He reports feeling dizzy, achy with chills, headache and abdominal discomfort. He has not noticed any blood or mucus in his stools. He denies any hematemesis. The patient denies any other recent infections or foreign travel. He currently rates his discomfort a 7 out of 10. Review of Systems HEENT: Denies dizziness, visual problems, hearing loss, tinnitus. Denies difficulty swallowing or oral lesions. PULMONARY: Denies cough, shortness of breath, sputum production or hemoptysis. CARDIOVASCULAR: Denies chest pain, palpitations, dyspnea on exertion, orthopnea or peripheral edema. GASTROINTESTINAL: See HPI. GENITOURINARY: Denies dysuria, frequency, urgency or nocturia. NEUROLOGIC: Denies history of epilepsy, CVA, TIA or chronic headaches. MUSCULOSKELETAL: Denies history of joint tenderness/swelling. SKIN: Denies rashes or lesions. PSYCHIATRIC: Denies history of depression or mental illness. ENDOCRINE: Denies history of diabetes or thyroid disorders. Past Medical/Surgical History Medical Problems: (1) Dental caries (2) Impetigo (3) Pharyngitis Family History Patient reports no known family medical history. Social History Smoking Status: Current Every Day Smoker Alcohol Use: occasionally Drug Use: heroin, marijuana Marital Status: in relationship Occupation Status: employed Current/Historical Medications Scheduled Ondasetron Odt (Zofran Odt), 4 MG SL Q6H Physical Exam Vital Signs Date Time Temp Pulse Resp B/P (MAP) Pulse Ox O2 Delivery O2 Flow Rate FiO2 01/31/18 10:19 83 16 123/66 95 Room Air 01/31/18 09:30 84 16 118/61 96 Room Air 01/31/18 07:42 36.7 107 18 126/75 97 Room Air Physical Exam CONSTITUTIONAL: Healthy and well nourished. Alert and oriented X 3 with positive affect. Patient does not appear in any acute distress, nor does he appear acutely ill or toxic. HEENT: Normocephalic, atraumatic. Pupils equal, round and reactive. No scleral icterus or conjunctival injection. OROPHARYNX: Mucous membranes are dry. No tonsillar hypertrophy or exudates. NECK: Full active range of motion without discomfort. RESPIRATORY: Clear to auscultation bilaterally with no wheezing, crackles, rhonchi or stridor. CARDIOVASCULAR: Regular rate and rhythm with no murmurs, rubs or gallops. GASTROINTESTINAL: Bowel sounds present in all quadrants. Patient has minimal and generalized tenderness to palpation of the abdomen. Negative CVA tenderness. Negative McBurney's point tenderness. Negative Daniel sign. No abdominal rigidity, guarding or rebound. MUSCULOSKELETAL: Full range of motion of all joints without discomfort. INTEGUMENTARY: No rash or other significant dermatologic conditions noted. HEMATOLOGIC: No ecchymosis or petechiae noted. NEUROLOGIC: No focal neurologic deficits noted. Medical Decision & Procedures Laboratory Results 01/31/18 08:30 Red Blood Count 4.74, Mean Corpuscular Volume 86.5, Mean Corpuscular Hemoglobin 29.7, Mean Corpuscular Hemoglobin Concent 34.4, Mean Platelet Volume 11.0, Neutrophils (%) (Auto) 91.7, Lymphocytes (%) (Auto) 4.5, Monocytes (%) (Auto) 3.0, Eosinophils (%) (Auto) 0.5, Basophils (%) (Auto) 0.1, Neutrophils # (Auto) 8.44, Lymphocytes # (Auto) 0.41, Monocytes # (Auto) 0.28, Eosinophils # (Auto) 0.05, Basophils # (Auto) 0.01 01/31/18 08:30 Test 01/31/18 08:25 01/31/18 08:30 Urine Color YELLOW Urine Appearance CLEAR (CLEAR) Urine pH 5.5 (4.5-7.5) Urine Specific [place] 1.034 (1.000-1.030) Urine Protein NEG (NEG) Urine Glucose (UA) NEG (NEG) Urine Ketones NEG (NEG) Urine Occult Blood NEG (NEG) Urine Nitrite NEG (NEG) Urine Bilirubin NEG (NEG) Urine Urobilinogen NEG (NEG) Urine Leukocyte Esterase NEG (NEG) White Blood Count 9.21 K/uL (4.8-10.8) Red Blood Count 4.74 M/uL (4.7-6.1) Hemoglobin 14.1 g/dL (14.0-18.0) Hematocrit 41.0 % (42-52) Mean Corpuscular Volume 86.5 fL (80-100) Mean Corpuscular Hemoglobin 29.7 pg (25-34) Mean Corpuscular Hemoglobin Concent 34.4 g/dl (32-36) Platelet Count 180 K/uL (130-400) Mean Platelet Volume 11.0 fL (7.4-10.4) Neutrophils (%) (Auto) 91.7 % Lymphocytes (%) (Auto) 4.5 % Monocytes (%) (Auto) 3.0 % Eosinophils (%) (Auto) 0.5 % Basophils (%) (Auto) 0.1 % Neutrophils # (Auto) 8.44 K/uL (1.4-6.5) Lymphocytes # (Auto) 0.41 K/uL (1.2-3.4) Monocytes # (Auto) 0.28 K/uL (0.11-0.59) Eosinophils # (Auto) 0.05 K/uL (0-0.5) Basophils # (Auto) 0.01 K/uL (0-0.2) RDW Standard Deviation 40.8 fL (36.4-46.3) RDW Coefficient of Variation 12.8 % (11.5-14.5) Immature Granulocyte % (Auto) 0.2 % Immature Granulocyte # (Auto) 0.02 K/uL (0.00-0.02) Anion Gap 8.0 mmol/L (3-11) Est Creatinine Clear Calc Drug Dose 172.9 ml/min Estimated GFR () 132.5 Estimated GFR (Non- 114.3 BUN/Creatinine Ratio 21.4 (10-20) Calcium Level 8.4 mg/dl (8.5-10.1) Total Bilirubin 1.7 mg/dl (0.2-1) Direct Bilirubin 0.2 mg/dl (0-0.2) Aspartate Amino Transf (AST/SGOT) 25 U/L (15-37) Alanine Aminotransferase (ALT/SGPT) 56 U/L (12-78) Alkaline Phosphatase 57 U/L (45-117) Total Protein 6.9 gm/dl (6.4-8.2) Albumin 3.9 gm/dl (3.4-5.0) Lipase 69 U/L (73-393) The above labs were reviewed without any significant abnormalities. Stool cultures are ordered and are pending. No fecal leukocytes are noted on fecal smear. Medications Administered Medications (Trade) Dose Ordered Sig/Dalia Route Start Time Stop Time Status Last Admin Dose Admin Ketorolac Tromethamine (Toradol Inj) 30 mg NOW STAT IV 01/31/18 08:15 01/31/18 08:19 DC 01/31/18 08:34 30 MG Sodium Chloride 1,000 ml @ 999 mls/hr Q1H1M STAT IV 01/31/18 08:15 01/31/18 09:15 DC 01/31/18 08:33 999 MLS/HR Ondansetron HCl (Zofran Inj) 4 mg NOW STAT IV 01/31/18 08:15 01/31/18 08:19 DC 01/31/18 08:33 4 MG ED Course Patient history and physical exam were performed. Nurse's notes were reviewed. Vital signs were reviewed. The patient is mildly tachycardic. He is afebrile and normotensive. IV access was established, and labs were drawn. The patient was hydrated with normal saline, and received IV Toradol and Zofran for discomfort and nausea. Labs were reviewed to show no significant abnormalities. Stool cultures were ordered and are pending. No fecal leukocytes were noted. The patient reported significant improvement of symptoms with the above treatment, and requested discharge home. The patient was encouraged to remain well-hydrated. He was provided a prescription for Zofran as needed for nausea. He was given further dietary instructions. He may take loperamide as needed for diarrhea. The patient was instructed to follow-up with his PCP if symptoms are not improving within the next 2-3 days. Return to the emergency department with any progressively worsening symptoms, rectal bleeding or fever. The patient was advised that stool cultures are pending, and that he would be contacted with any positive culture results. The patient was happy with plan of care, voiced understanding of all discharge instructions, and denied any significant nausea or discomfort at the time of discharge. Medical Decision I suspect the patient has an acute viral gastroenteritis. Fecal smear at this point is not suggestive of bacterial infection. Laboratory studies are not suggestive of pancreatitis, cholecystitis or hepatitis. Abdominal exam is benign, therefore I do not suspect acute diverticulitis, appendicitis or pyelonephritis. Medication Reconcilliation Current Medication List: was personally reviewed by me Blood Pressure Screening Patient's blood pressure: Normal blood pressure Impression Primary Impression: Gastroenteritis Additional Impression: Nausea, vomiting, and diarrhea Departure Information Prescriptions Ondasetron Odt (ZOFRAN ODT) 4 Mg Tab 4 MG SL Q6H for Nausea, #10 TAB Prov: Bradly Cruz PA 01/31/18 Referrals Nohemi Edward D.O. (PCP) Patient Instructions My [facility] Problem Qualifiers
== END 2018-01-31 10:26 | disposition home or self-care (01) ==
LOC: C.EDB 07:40 → C.EDA 10:26
DX: K52.9 Noninfective gastroenteritis and colitis, unspecified (principal); F17.200 Nicotine dependence, unspecified, uncomplicated

== ENCOUNTER 2019-02-04 03:50 | Observation (INO) ==
[2019-02-04] MEDS ORDERED: METOCLOPRAMIDE HCL INJ 5 MG/ML 2 ML VIAL IV STA (03:56)
[2019-02-04] MEDS ORDERED: KETOROLAC TROMETHAMINE 15 MG/ML VIAL IV STA (03:56)
[2019-02-04] MEDS ORDERED: SODIUM CHLORIDE 0.9% 1000ML 1,000 ML IV ONE (03:56)
[2019-02-04] MEDS ORDERED: DiphenhydrAMINE HCL 50 MG/ML VIAL IV STA (03:56)
--- NOTE | 2019-02-04 04:02 | Emergency Department Note ---
History of Present Illness General Chief complaint: Abdominal Pain Stated complaint: abdominal pain History of Present Illness This 39-year-old presents to the ER complaining of severe sudden onset of left flank and left lower quadrant pain Location: Left lower flank and abdomen Quality: Severe Severity: Severe Duration: Past 30 minutes Timing: Woke him from sleep Context: Pain persisted and patient called the ambulance Modifying factors: better with nothing; worse with nothing Patient denies chest pain, dyspnea, nausea, vomiting, diarrhea, penile pain, testicular pain, urinary symptoms. No history of kidney stones. No history of diverticulitis. No injury to the area. Patient states he woke up from sleep secondary to the pain. Home Medications Home Medications Medication Instructions Recorded Confirmed Type No Known Home Medications 02/04/19 02/04/19 History Allergies Allergy/AdvReac Type Severity Reaction Status Date / Time No Known Allergies Allergy Unverified 02/04/19 04:08 Past Med/Surg History Medical History No acute medical problems Surgical History History of hernia surgery Social History Preferred Language: Kazakh Communication Ability: Effective Beliefs That Will Affect Care: None Current Living Situation: Significant Other Other Information That Helps Us Care for You: No Feels Safe at Home: Yes Safety Concerns: Feels Safe At This Time Smoking Status: Current every day smoker Tobacco Type: cigarettes Cigarettes Per Day: 10 Do You Dip or Chew Tobacco: No Hx Alcohol Use: Yes Alcohol type: hard liquor Hx Substance Use: No Review of Systems All systems reviewed & are unremarkable except as noted in HPI & below Physical Exam Vital Signs Vital Signs - 24 hr 02/04/19 03:40 02/04/19 04:37 02/04/19 06:27 Temperature 37.1 C Temperature Source Oral Sepsis Recent Fever Within 48 Hours No Sepsis Action Taken by Nursing No Action Required Pulse Rate 75 Pulse Rate [Apical] 72 88 Respiratory Rate 18 18 18 Respiratory Effort / Characteristics Non-Labored Spontaneous Non-Labored Spontaneous Non-Labored Spontaneous Respiratory Depth Normal Normal Normal Respiratory Pattern Regular Regular Regular Blood Pressure 127/66 Blood Pressure [Right Arm] 110/58 L 103/46 L Blood Pressure Mean 86 Blood Pressure Mean [Right Arm] 75 65 Blood Pressure Position Sitting Blood Pressure Position [Right Arm] Lying Lying Pulse Oximetry 96 95 97 Oxygen Delivery Method Room Air Room Air Room Air 02/04/19 07:07 02/04/19 08:22 02/04/19 08:59 Temperature Temperature Source Sepsis Recent Fever Within 48 Hours Sepsis Action Taken by Nursing Pulse Rate Pulse Rate [Apical] 60 65 69 Respiratory Rate 16 16 18 Respiratory Effort / Characteristics Non-Labored Spontaneous Respiratory Depth Normal Normal Normal Respiratory Pattern Blood Pressure Blood Pressure [Right Arm] 105/62 103/68 109/70 Blood Pressure Mean Blood Pressure Mean [Right Arm] 76 79 83 Blood Pressure Position Blood Pressure Position [Right Arm] Pulse Oximetry 97 98 98 Oxygen Delivery Method Room Air Room Air Room Air 02/04/19 09:03 02/04/19 09:30 02/04/19 15:28 Temperature 36.7 C 36.4 C L Temperature Source Oral Oral Sepsis Recent Fever Within 48 Hours Sepsis Action Taken by Nursing Pulse Rate Pulse Rate [Apical] Respiratory Rate 18 18 Respiratory Effort / Characteristics Non-Labored Spontaneous Respiratory Depth Normal Respiratory Pattern Regular Blood Pressure Blood Pressure [Right Arm] 103/66 147/93 H Blood Pressure Mean Blood Pressure Mean [Right Arm] 78 111 Blood Pressure Position Blood Pressure Position [Right Arm] Lying Lying Pulse Oximetry 98 97 Oxygen Delivery Method Room Air Room Air Room Air VITALS: Vitals are noted on the nurse's note and reviewed by myself. Vital signs stable. GENERAL: White male who appears in pain, in no acute distress, nondiaphoretic, well-developed well-nourished. SKIN: Capillary reflex less than 2 seconds. HEENT: Normocephalic. PERRLA. EOMI. Nares patent. Mucous membranes moist. Neck is supple without nuchal rigidity. HEART: Regular rate and rhythm without murmurs gallops or rubs. LUNGS: Clear to auscultation bilaterally without wheezes, rales or rhonchi. No retractions or accessory muscle use. ABDOMEN: Positive bowel sounds x 4. Normal tympanic percussion. Soft, tender in the right upper and left lower quadrant, without masses or organomegaly. No guarding or rebound tenderness. No CVA tenderness MUSCULOSKELETAL: No gross musculoskeletal defects. NEURO: Patient was alert and oriented to person place and time. Normal sensation to light and sharp touch. No focal neurological deficits. Course Administered Medications Hydromorphone HCl (Dilaudid) 0.5 mg IV Q3H PRN PRN Reason: Pain Stop: 02/18/19 08:27 Last Admin: 02/04/19 19:03 Dose: 0.5 mg Documented by: [id number] Admin: 02/04/19 15:23 Dose: 0.5 mg Documented by: [id number] Lactated Ringer's (Lr) 1,000 mls @ 80 mls/hr IV .[id number] JOCELYN Stop: 03/06/19 08:29 Last Admin: 02/04/19 10:33 Dose: 80 mls/hr Documented by: [id number] Piperacillin Sod/Tazobactam (Sod 3.375 gm/ Dextrose) 115 mls @ 28.75 mls/hr IV Q8H JOCELYN; Protocol Stop: 02/06/19 15:59 Last Infusion: 02/04/19 20:15 Dose: 0 mls/hr Documented by: [id number] Admin: 02/04/19 15:24 Dose: 28.8 mls/hr Documented by: [id number] Discontinued Medications Diphenhydramine HCl (Benadryl) 25 mg IV NOW STA Stop: 02/04/19 03:57 Last Admin: 02/04/19 04:11 Dose: 25 mg Documented by: [id number] Sodium Chloride (Nss 1000ml) 1,000 mls @ 999 mls/hr IV .Q1H1M ONE Stop: 02/04/19 04:56 Last Infusion: 02/04/19 05:10 Dose: 0 mls/hr Documented by: [id number] Admin: 02/04/19 04:08 Dose: 999 mls/hr Documented by: [id number] Piperacillin Sod/Tazobactam (Sod 3.375 gm/ Dextrose) 115 mls @ 230 mls/hr IV NOW ONE; Protocol Stop: 02/04/19 10:59 Last Infusion: 02/04/19 13:17 Dose: 0 mls/hr Documented by: [id number] Admin: 02/04/19 11:55 Dose: 230 mls/hr Documented by: [id number] Ketorolac Tromethamine (Toradol) 10 mg IV NOW STA Stop: 02/04/19 03:57 Last Admin: 02/04/19 04:10 Dose: 10 mg Documented by: [id number] Metoclopramide HCl (Reglan) 10 mg IV NOW STA Stop: 02/04/19 03:57 Last Admin: 02/04/19 04:09 Dose: 10 mg Documented by: [id number] Medical Decision Making Medical Records Attestation: I reviewed the patient's medical records. Home Medications Current Medication List: was personally reviewed by me Laboratory Data Attestation: I reviewed the patient's lab results. Result diagrams: 02/04/19 04:10 02/04/19 04:10 Lab Results 02/04/19 02/04/19 02/04/19 Range/Units 04:10 04:10 04:13 WBC 5.75 (4.8-10.8) K/uL RBC 4.57 L (4.7-6.1) M/uL Hgb 13.3 L (14.0-18.0) g/dL Hct 38.7 L (42-52) % MCV 84.7 (80-100) fL MCH 29.1 (25-34) pg MCHC 34.4 (32-36) g/dL RDW Std Deviation 40.6 (36.4-46.3) fL RDW Coeff of Edward 13.1 (11.5-14.5) % Plt Count 194 (130-400) K/uL MPV 10.8 H (7.4-10.4) fL Immature Gran % (Auto) 0.0 % Neut % (Auto) 50.5 % Lymph % (Auto) 32.5 % [place] % (Auto) 6.1 % Eos % (Auto) 10.6 % Baso % (Auto) 0.3 % Immature Gran # (Auto) 0.00 (0.00-0.02) K/uL Neut # (Auto) 2.90 (1.4-6.5) K/uL Lymph # (Auto) 1.87 (1.2-3.4) K/uL [place] # (Auto) 0.35 (0.11-0.59) K/uL Eos # (Auto) 0.61 H (0-0.5) K/uL Baso # (Auto) 0.02 (0-0.2) K/uL Sodium 140 (136-145) mmol/L Potassium 3.4 L (3.5-5.1) mmol/L Chloride 109 H (98-107) mmol/L Carbon Dioxide 26 (21-32) mmol/L Anion Gap 5.0 (3-11) BUN 14 (7-18) mg/dl Creatinine 0.83 (0.6-1.4) mg/dl Est Cr Clr Drug Dosing 168.7 ml/min Est GFR ( Amer) 130.3 Est GFR (Non-Af Amer) 112.4 BUN/Creatinine Ratio 17.0 (10-20) Glucose 98 (70-99) mg/dl Calcium 8.7 (8.5-10.1) mg/dl Total Bilirubin 0.4 (0.2-1) mg/dl AST 13 L (15-37) U/L ALT 27 (12-78) U/L Alkaline Phosphatase 61 (45-117) U/L Total Protein 7.0 (6.4-8.2) gm/dl Albumin 3.7 (3.4-5.0) gm/dl Globulin 3.3 (2.5-4.0) gm/dl Albumin/Globulin Ratio 1.1 (0.9-2) Lipase 131 (73-393) U/L Urine Color Yellow Urine Appearance Clear (Clear) Urine pH 5.0 (4.5-7.5) Ur Specific [place] 1.020 (1.000-1.030) Urine Protein Negative (Negative) Urine Glucose (UA) Negative (Negative) Urine Ketones Negative (Negative) Urine Blood 3+ H (Negative) Urine Nitrite Negative (Negative) Urine Bilirubin Negative (Negative) Urine Urobilinogen Negative (Negative) Ur Leukocyte Esterase Negative (Negative) Urine WBC (Auto) 1-5 (0-5) /hpf Urine RBC (Auto) >30 H (0-4) /hpf U Hyaline Cast (Auto) 1-5 (0-5) /lpf U Epithel Cells (Auto) 0-5 (0-5) /lpf Urine Bacteria (Auto) Negative (Negative) Imaging Data Attestation: I personally reviewed and interpreted this imaging study as follows: MDM Narrative Prior records/ancillary studies reviewed. Triage Nursing notes reviewed. Additional history obtained from EMS. The patient's history was concerning for abdominal pain. Differential diagnosis: Etiologies such as appendicitis, diverticulitis, PUD, biliary pathology, UTI, pancreatitis, obstruction, mesenteric ischemia, aortic pathology, infections, inflammatory bowel disease, renal colic, as well as others were entertained. Physical examination findings: As above. ER treatment provided: Toradol, Reglan, Benadryl, IV fluids On reassessment the patient felt better. Diagnostics interpreted by me: The labs revealed stable H&H. Hematuria Imaging studies: US GALLBLADDER: CT today. Echogenic liver may represent fatty liver or other hepatic infiltrative process. Hepatomegaly. Gallbladder is filled with sludge and debris as well as 3 cm stone. Mild gallbladder wall thickening. No pericholecystic fluid. Negative sonographic Daniel sign. Findings are equivocal for acute cholecystitis. If there is further concern, HIDA scan may help to clarify. No biliary dilation. Radiologist: Lucien James M.D. CT ABDOMEN & PELVIS Without Contrast: Normal appendix. No free air, free fluid or bowel obstruction. Query mildly thickened small bowel loops in the left abdomen. May represent enteritis. Apparent wall thickening of parts of the distal colon. Likely due to partial distention. No hydronephrosis or obstructing urinary tract calculus. Gallstone. High density fluid within the gallbladder may reflect sludge or vicarious excretion of IV contrast if there has been a prior contrast study. Radiologist: Lucien James M.D. Consultation: A consultation was placed with the surgeon Dr. Cantu. The case was discussed and diagnostics were reviewed. His surgical PA will be in to evaluate the patient. Exam and history seem consistent with abdominal pain with concerns for possible acute cholecystitis. Surgery was consulted and will evaluate the patient.. By the evaluation outlined above emergent etiologies such as appendicitis, diverticulitis, UTI, pancreatitis, obstruction, mesenteric ischemia, aortic pathology, inflammatory bowel disease, as well as others were deemed relatively unlikely. The pt informed about the findings as listed above. All questions were answered and pleased with the treatment. Case reviewed with my attending The chart was completed utilizing [employer] Speech voice recognition software. Grammatical errors, random word insertions, pronoun errors, and incomplete sentences are an occassional consequence of this system due to software limitations, ambient noise, and hardware issues. Any formal questions or concerns about the content, text, or information contained within the body of this dictation should be directly addressed to the physician assistant surveyor for clarification. Impression & Plan Abdominal pain Discharge Plan Visit Data *Final* Discharge Date/Time: 02/04/19 09:00 Chief Complaint: Abdominal Pain Stated Complaint: abdominal pain ED Provider: Sheila Prather ED Midlevel Provider: Ariana Doan Discharge Problem: Abdominal pain Patient Disposition: Admitted As Inpatient Condition: Good Discharge Instructions Interventions: ED Discharge Assessment Last Done: 02/04/19 09:00 Discharge Problem: Abdominal pain Qualifiers: Abdominal location: right upper quadrant Qualified Code(s): R10.11 - Right upper quadrant pain
[2019-02-04 04:20] LABS: Basophils # (auto) 0.02 K/uL (0-0.2); Basophils % (auto) 0.3 %; Eosinophils # (auto) 0.61 K/uL (0-0.5); Eosinophils % (auto) 10.6 %; Hematocrit (blood only) 38.7 % (42-52); Hemoglobin 13.3 g/dL (14.0-18.0); Lymphocytes # (auto) 1.87 K/uL (1.2-3.4); Lymphocytes % (auto) 32.5 %; Mean Corpuscular Hgb Conc 34.4 g/dL (32-36); Mean Corpuscular Volume 84.7 fL (80-100); Mean Platelet Volume 10.8 fL (7.4-10.4); Monocytes # (auto) 0.35 K/uL (0.11-0.59); Monocytes % (auto) 6.1 %; Neutrophils % (auto) 50.5 %; Platelet Count 194 K/uL (130-400); RDW Coefficient of Variation 13.1 % (11.5-14.5); RDW Standard Deviation 40.6 fL (36.4-46.3); Red Blood Count 4.57 M/uL (4.7-6.1); White Blood Count 5.75 K/uL (4.8-10.8)
[2019-02-04 04:27] LABS: Appearance Urine Clear (Clear); Bacteria Urine Automated Negative (Negative); Bilirubin Urine Negative (Negative); Blood Urine 3+ (Negative); Color Urine Yellow; Epithelial Cell Urine Auto 0-5 /lpf (0-5); Glucose Urine UA Negative (Negative); Ketones Urine Negative (Negative); Leukocyte Esterase Urine Negative (Negative); Nitrite Urine Negative (Negative); Protein Urine Negative (Negative); RBC Urine Automated >30 /hpf (0-4); Urobilinogen Urine Negative (Negative)
[2019-02-04 04:40] LABS: Albumin Level 3.7 gm/dl (3.4-5.0); Calcium 8.7 mg/dl (8.5-10.1); Creatinine Clr Calc Pharmacy 168.7 ml/min; Est GFR (African American) 130.3; Est GFR (Non-African American) 112.4; Potassium 3.4 mmol/L (3.5-5.1)
[2019-02-04 04:42] LABS: Albumin Globulin Ratio 1.1 (0.9-2); Bilirubin,Total 0.4 mg/dl (0.2-1); Globulin 3.3 gm/dl (2.5-4.0)
--- NOTE | 2019-02-04 06:18 | Ultrasound Report ---
US gallbladder HISTORY: Pain. Nausea. pain, abnl CT, ? GB COMPARISON: None. FINDINGS: Combination of gallstones and sludge within the gallbladder lumen. Although wall somewhat thickened a t 5 mm. No significant pericholecystic fluid. Common bile duct 3 mm. Liver demonstrates fatty infiltration. Pancreas and right kidney are unremarka ble. IMPRESSION: 1. Correlation gallstones and sludge within the gallbladder lumen. 2. Normal caliber bile ducts. 3. Mild gallbladder wall thickening 5 mm. 4. Study infiltration of liver. The above report was generated using voice recognition software. It may contain grammatical, syntax or spelling errors. Electronically signed by: Ede Marina M.D. 02/04/2019 6:17 AM
--- NOTE | 2019-02-04 06:37 | CT Scan Report ---
CT SCAN OF THE ABDOMEN AND PELVIS WITHOUT CONTRAST CLINICAL HISTORY: Severe left flank pain COMPARISON STUDY: No previous studies for comparison. TECHNIQUE: CT scan of the abdomen and pelvis was performed from the lung bases to the proximal femurs . Images are reviewed in the axial, sagittal, and coronal planes. IV contrast was not administered fo r this examination. A dose lowering technique was utilized adhering to the principles of ALARA. CT DOSE: 1319.53 mGy.cm FINDINGS: Lower chest: The heart is normal in size and configuration, without pericardial effusion. The lung ba ses and pleural spaces are clear. Liver: The unenhanced liver is normal in size, contour, and attenuation. There is no intrahepatic jennifer iary ductal dilatation. Gallbladder: There is cholelithiasis with minimal infiltration the pericholecystic fat. Although the gallbladder is not distended, clinical correlation in regards to cholecystitis is recommended. Spleen: Normal in size and attenuation. Pancreas: Unremarkable. Adrenal glands: Unremarkable. Kidneys: No renal, ureteral, or bladder calculi are visualized. Bowel: There are no transition zones indicate bowel obstruction. There is colonic diverticulosis. The re is no evidence of acute diverticulitis. The appendix appears normal. There is a suggestion of mild submucosal fat hypertrophy within the distal colon Peritoneum: There is no intraperitoneal free air or abdominal ascites. Vasculature: The abdominal aorta is normal in course and caliber. Adenopathy: None. Pelvic viscera: The bladder, and pelvic viscera are unremarkable. Skeletal structures: No destructive osseous lesions are seen. IMPRESSION: 1. No evidence of bowel obstruction. No evidence of free air 2. No renal, ureteral, or bladder calculi identified 3. Cholelithiasis with minimal pericholecystic edema. Electronically signed by: Gomez Yoo M.D. 02/04/2019 6:36 AM
--- NOTE | 2019-02-04 08:11 | Emergency Department Note ---
ED Visit Note I received sign out from Lily Tovar PA-C at change of shift. Pt presented with abdominal pain. There is concern for acute cholecystitis on imaging today. Patient is awaiting surgical consult. I spoke with Dr. Carmen, general surgery, who is admitting the patient, with plans for surgery tomorrow. : Abdominal pain Qualifiers: Abdominal location: right upper quadrant Qualified Code(s): R10.11 - Right upper quadrant pain
--- NOTE | 2019-02-04 08:14 | Surgery Consultation ---
Date of Consultation February 04, 2019 Assessment & Plan (1) Acute cholecystitis: pt is a 39 year-old male who presents to Er with RUQ and right back pain, IMP: acute cholecystitis, cholelithiasis, renal stone? Plan, I recommend to admit to hospital IV fluid, iv antibiotic, control pain, repeat labs in am, I recommend to do laparoscopic cholecystectomy, possible open or cholangiogram tomorrow, D/W benefits, risks and alternatives of the surgery, the risks - infection, bleeding, injury CBD, bowel, may need ERCP, , pt understood, he agrees with the plan, I answered all questions, History of Present Illness History of Present Illness pt is a 39 year-old male who presents to ER with 2 days history RUQ and Right lower back pain, pt has some nausea, no vomiting, the pain is located at RUQ and right back, pt denies fever, no diarrhea, pt had U/S and CT scan at Er dx cholelithiasis, Allergies Allergy/AdvReac Type Severity Reaction Status Date / Time No Known Allergies Allergy Unverified 02/04/19 04:08 Home Medications Home Medications Medication Instructions Recorded Confirmed Type No Known Home Medications 02/04/19 02/04/19 History Patient History Medical History No acute medical problems Surgical History History of hernia surgery Social History Preferred Language: Welsh Feels Safe at Home: Yes Smoking Status: Current every day smoker Review of Systems Constitutional: as per Subjective / HPI Ear, Nose, Mouth, Throat: as per Subjective / HPI Respiratory: as per Subjective / HPI smoking 0.5 pack/day Cardiovascular: as per Subjective / HPI Gastrointestinal: + abdominal pain and + nausea Genitourinary: + as per Subjective / HPI Integumentary: as per Subjective / HPI Neurologic: as per Subjective / HPI Psychiatric: as per Subjective / HPI Endocrine: as per Subjective / HPI Hematologic / Lymphatic: as per Subjective / HPI Physical Exam Constitutional: WD/WN, vitals as above well developed and well nourished ENMT: external ear and nose normal, oropharynx normal Neck: trachea midline, no thyromegaly Respiratory: normal respiratory effort, lungs clear to auscultation normal respiratory effort Cardiovascular: RRR, no murmur, no edema Rate/Rhythm: regular rate and regular rhythm Heart Sounds: normal S1 and normal S2 Gastrointestinal (Abdomen): normal bowel sounds, soft, nontender, no hepatosplenomegaly Percussion/Palpation: + abdomen tender soft. tenderness at RUQ, no rebound pain Neurologic: patellar DTR's 2+ bilat, sensation intact Psychiatric: A+Ox3, euthymic affect Genitourinary: right back pain Lymphatic: no cervical or axillary lymphadenopathy Results & Data Vital Signs (Past 12 Hours) Vital Signs Temp Pulse Pulse Resp BP BP Pulse Ox 02/04/19 07:07 60 16 105/62 97 02/04/19 06:27 88 18 103/46 L 97 02/04/19 04:37 72 18 110/58 L 95 02/04/19 03:40 37.1 C 75 18 127/66 96 Laboratory Results Abnormal lab results 02/04/19 02/04/19 02/04/19 Range/Units 04:10 04:10 04:13 RBC 4.57 L (4.7-6.1) M/uL Hgb 13.3 L (14.0-18.0) g/dL Hct 38.7 L (42-52) % MPV 10.8 H (7.4-10.4) fL Eos # (Auto) 0.61 H (0-0.5) K/uL Potassium 3.4 L (3.5-5.1) mmol/L Chloride 109 H (98-107) mmol/L AST 13 L (15-37) U/L Urine Blood 3+ H (Negative) Urine RBC (Auto) >30 H (0-4) /hpf Diagnostic Findings US gallbladder HISTORY: Pain. Nausea. pain, abnl CT, ? GB COMPARISON: None. FINDINGS: Combination of gallstones and sludge within the gallbladder lumen. Although wall somewhat thickened at 5 mm. No significant pericholecystic fluid. Common bile duct 3 mm. Liver demonstrates fatty infiltration. Pancreas and right kidney are unremarkable. IMPRESSION: 1. Correlation gallstones and sludge within the gallbladder lumen. 2. Normal caliber bile ducts. T SCAN OF THE ABDOMEN AND PELVIS WITHOUT CONTRAST CLINICAL HISTORY: Severe left flank pain COMPARISON STUDY: No previous studies for comparison. TECHNIQUE: CT scan of the abdomen and pelvis was performed from the lung bases to the proximal femurs. Images are reviewed in the axial, sagittal, and coronal planes. IV contrast was not administered for this examination. A dose lowering technique was utilized adhering to the principles of ALARA. CT DOSE: 1319.53 mGy.cm FINDINGS: Lower chest: The heart is normal in size and configuration, without pericardial effusion. The lung bases and pleural spaces are clear. Liver: The unenhanced liver is normal in size, contour, and attenuation. There is no intrahepatic biliary ductal dilatation. Gallbladder: There is cholelithiasis with minimal infiltration the pericholecystic fat. Although the gallbladder is not distended, clinical correlation in regards to cholecystitis is recommended. Spleen: Normal in size and attenuation. Pancreas: Unremarkable. Adrenal glands: Unremarkable. Kidneys: No renal, ureteral, or bladder calculi are visualized. Bowel: There are no transition zones indicate bowel obstruction. There is colonic diverticulosis. There is no evidence of acute diverticulitis. The appendix appears normal. There is a suggestion of mild submucosal fat hypertrophy within the distal colon Peritoneum: There is no intraperitoneal free air or abdominal ascites. Vasculature: The abdominal aorta is normal in course and caliber. Adenopathy: None. Pelvic viscera: The bladder, and pelvic viscera are unremarkable. Skeletal structures: No destructive osseous lesions are seen. IMPRESSION: 1. No evidence of bowel obstruction. No evidence of free air 2. No renal, ureteral, or bladder calculi identified 3. Cholelithiasis with minimal pericholecystic edema. 3. Mild gallbladder wall thickening 5 mm. 4. Study infiltration of liver.
[2019-02-04] MEDS ORDERED: PIPERACILL/TAZOBAC CONSULT ACTIVE PRN (08:25)
[2019-02-04] MEDS ORDERED: PIPERACILLIN/TAZOBACTAM 3.375 GM in DEXTROSE 5% 100 ML IV ONE (10:30)
[2019-02-04] MEDS: LACTATED RINGER'S 1,000 ML IV SCH ×2 (10:33→21:40)
[2019-02-04] MEDS: HYDROmorphone INJ 0.5 MG/0.5 ML SYR IV PRN ×3 (15:23→23:05)
[2019-02-04] MEDS: PIPERACILLIN/TAZOBACTAM 3.375 GM in DEXTROSE 5% 100 ML IV SCH ×2 (15:24→23:38)
[2019-02-05 05:52] LABS: Basophils # (auto) 0.04 K/uL (0-0.2); Basophils % (auto) 0.8 %; Eosinophils # (auto) 0.65 K/uL (0-0.5); Eosinophils % (auto) 12.6 %; Hematocrit (blood only) 36.1 % (42-52); Hemoglobin 12.7 g/dL (14.0-18.0); Lymphocytes # (auto) 1.82 K/uL (1.2-3.4); Lymphocytes % (auto) 35.3 %; Mean Corpuscular Hgb Conc 35.2 g/dL (32-36); Mean Corpuscular Volume 82.8 fL (80-100); Mean Platelet Volume 10.1 fL (7.4-10.4); Monocytes % (auto) 7.8 %; Neutrophils # (auto) 2.24 K/uL (1.4-6.5); Neutrophils % (auto) 43.5 %; Platelet Count 185 K/uL (130-400); RDW Standard Deviation 39.4 fL (36.4-46.3); Red Blood Count 4.36 M/uL (4.7-6.1); White Blood Count 5.15 K/uL (4.8-10.8)
[2019-02-05 06:29] LABS: Albumin Level 3.2 gm/dl (3.4-5.0); BUN Creatinine Ratio 9.8 (10-20); Calcium 8.3 mg/dl (8.5-10.1); Creatinine Clr Calc Pharmacy 177.2 ml/min; Est GFR (Non-African American) 114.7; Potassium 3.8 mmol/L (3.5-5.1)
[2019-02-05 06:32] LABS: Albumin Globulin Ratio 1.1 (0.9-2); Bilirubin,Total 1.1 mg/dl (0.2-1); Globulin 2.9 gm/dl (2.5-4.0); Total Protein 6.1 gm/dl (6.4-8.2)
[2019-02-05] MEDS ORDERED: LIDOCAINE HCL 1% 20 ML VIAL ONE (06:55)
[2019-02-05] MEDS ORDERED: BUPIVACAINE 0.5 % 5 MG/1 ML MPF 30ML VIAL ONE (06:55)
[2019-02-05] MEDS ORDERED: BACITRACIN OINT 15 GM TUBE ONE (06:55)
[2019-02-05] MEDS ORDERED: DEXAMETHASONE SOD INJ 4 MG/ML VIAL ONE (06:59)
[2019-02-05] MEDS ORDERED: PROPOFOL IV EMULSION 10 MG/ML 20 ML VIAL IV ONE (06:59)
[2019-02-05] MEDS ORDERED: NEOSTIGMINE METHYLSULFATE 5 MG/5 ML SYR ONE (06:59)
[2019-02-05] MEDS ORDERED: ONDANSETRON INJ 2 MG/ML 2 ML VIAL ONE (06:59)
[2019-02-05] MEDS ORDERED: GLYCOPYRROLATE 0.2 MG/ML VIAL ONE (06:59)
[2019-02-05] MEDS ORDERED: LIDOCAINE HCL 2% 2 ML VIAL/AMP(20MG/ML) INFIL ONE (06:59)
[2019-02-05] MEDS ORDERED: MIDAZOLAM HCL 1 MG/ML 2ML VIAL ONE (07:00)
[2019-02-05] MEDS ORDERED: fentaNYL citrate 100 MCG/2 ML VIAL ONE ×3 (07:00→08:08)
--- NOTE | 2019-02-05 07:15 | History & Physical Bridge Note ---
Date of Service February 05, 2019 History & Physical Bridge Note I have examined the patient, reviewed the History & Physical and in the interval since the performance of the History & Physical I have noted the following changes of clinical significance: no changes noted
--- NOTE | 2019-02-05 07:25 | Anesthesiology Consultation ---
Date of Service February 05, 2019 Assessment & Plan Chart Review Chart Review: Acceptable Risk for Surgery Consults Requested none History Surgery Operation Date: 02/05/19 07:30 Proposed Procedures p Laparoscopic Cholecystectomy - Sindhu Carmen MD Height/Weight Height: 6 ft 3 in Weight: 117.9 kg Allergies Allergy/AdvReac Type Severity Reaction Status Date / Time No Known Allergies Allergy Unverified 02/04/19 04:08 Medications Home Medications Medication Instructions Recorded Confirmed Last Taken No Known Home Medications 02/04/19 02/04/19 Unknown Active Medications Generic Name Dose Route Start Last Admin Trade Name Freq PRN Reason Stop Dose Admin Hydromorphone HCl 0.5 mg 02/04/19 08:28 02/04/19 23:05 Dilaudid IV 02/18/19 08:27 0.5 mg Q3H PRN Administration Pain Lactated Ringer's 1,000 mls @ 80 mls/hr 02/04/19 08:30 02/04/19 21:40 Lr IV 03/06/19 08:29 80 mls/hr .[id number] JOCELYN Administration Piperacillin Sod/Tazobactam 115 mls @ 28.75 mls/hr 02/04/19 16:00 02/05/19 03:18 Sod 3.375 gm/ Dextrose IV 02/06/19 15:59 Infused Q8H JOCELYN Infusion Protocol NPO Date Last Intake of Fluids: 02/04/19 Time Last Intake of Fluids: 23:00 Date Last Intake of Solids: 02/04/19 Time Last Intake of Solids: 23:00 Past Medical History Medical History Acute cholecystitis No acute medical problems Past Surgical History Surgical History History of hernia surgery Social History Smoking Status: Current every day smoker tobacco type: cigarettes Smoking cigarettes per day: 10 Do You Dip or Chew Tobacco: No Hx Alcohol Use: Yes Alcohol type: hard liquor alcohol intake frequency: a few times a week Hx Substance Use: No Physical Exam Vital Signs Last Vital Signs Temp 36.5 C 02/05/19 07:04 Pulse 54 L 02/05/19 07:04 Resp 18 02/05/19 07:04 BP 124/71 02/05/19 07:04 Pulse Ox 98 02/05/19 07:04 Testing Laboratory Results 02/05/19 05:39 02/05/19 05:39 Urine Color Yellow 02/04/19 04:13 Urine Appearance Clear (Clear) 02/04/19 04:13 Urine pH 5.0 (4.5-7.5) 02/04/19 04:13 Ur Specific [place] 1.020 (1.000-1.030) 02/04/19 04:13 Urine Protein Negative (Negative) 02/04/19 04:13 Urine Glucose (UA) Negative (Negative) 02/04/19 04:13 Urine Ketones Negative (Negative) 02/04/19 04:13 Urine Nitrite Negative (Negative) 02/04/19 04:13 Ur Leukocyte Esterase Negative (Negative) 02/04/19 04:13 Urine WBC (Auto) 1-5 /hpf (0-5) 02/04/19 04:13 Urine RBC (Auto) >30 /hpf (0-4) H 02/04/19 04:13 U Hyaline Cast (Auto) 1-5 /lpf (0-5) 02/04/19 04:13 U Epithel Cells (Auto) 0-5 /lpf (0-5) 02/04/19 04:13 Urine Bacteria (Auto) Negative (Negative) 02/04/19 04:13
[2019-02-05] MEDS ORDERED: ePHEDrine sulfate 50 MG/ML AMP IV PRN (07:26)
[2019-02-05] MEDS ORDERED: ONDANSETRON INJ 2 MG/ML 2 ML VIAL IV PRN ×2 (07:26→11:02)
[2019-02-05] MEDS ORDERED: ATROPINE SULFATE 0.1 MG/ML 10ML SYR IV PRN (07:26)
[2019-02-05] MEDS ORDERED: HYDROmorphone INJ 2 MG/ML SYR/VIAL IV PRN (07:26)
[2019-02-05] MEDS ORDERED: DEXAMETHASONE SOD INJ 4 MG/ML VIAL IV PRN (07:26)
[2019-02-05] MEDS ORDERED: PROMETHAZINE HCL 12.5 MG in SODIUM CHLORIDE 0.9% 50 ML IV PRN (07:26)
[2019-02-05] MEDS ORDERED: CONRAY 60% 50 ML VIAL ONE (07:34)
[2019-02-05] MEDS ORDERED: KETOROLAC 30 MG/ML VIAL ONE (08:08)
--- NOTE | 2019-02-05 08:28 | Fluoroscopy Report ---
[place] cholangiogram OR CLINICAL HISTORY: CHOLANGIOGRAM cholelithiasis COMPARISON STUDY: None FLUOROSCOPY TIME: 5 seconds. NUMBER OF FLUOROSCOPIC IMAGES: 1 FINDINGS: A single fluoroscopic spot image from an intraoperative operative cholangiogram is provided for interpretation. There is evidence for contrast extravasation forming an amorphous collection wit hin the right central abdomen. There is a small amount of contrast within the right subhepatic space. The ductal system was not opacified. IMPRESSION: Extravasated contrast. The ductal system was not opacified. Electronically signed by: Gomez Yoo M.D. 02/05/2019 8:27 AM
[2019-02-05] MEDS ORDERED: ROCURONIUM BROMIDE 10 MG/ML 5 ML VIAL ONE (09:17)
--- NOTE | 2019-02-05 09:24 | Post Operative Brief Note ---
Immediate Post Op Note v1 Date of Surgery February 05, 2019 Pre & Post Diagnosis Operation Date: 02/05/19 07:30 Pre-Op Diagnosis: Acute Cholecystitis, cholelithiasis Post-Op Diagnosis: Acute Cholecystitis, cholelithiasis Procedure Operation Date: 02/05/19 07:30 Actual Procedures p Laparoscopic Cholecystectomy with Cholangiogram(Not Applicable) - Sindhu Carmen MD Surgeon Sindhu Carmen MD [employer] KEON Scott Estimated Blood Loss 30 Findings Consistent with Post-Op Diagnosis significant inflammation on gallbladder wall, edema Fluids 1000ml Specimens gallbladder Drains Panda-Coy Drain Anesthesia Type General Complications none Disposition Accompanied Patient To Recovery: Yes Disposition: Recovery Room Overlapping Procedure I was immediately available: during the entire case.
[2019-02-05] MEDS ORDERED: METOCLOPRAMIDE HCL INJ 5 MG/ML 2 ML VIAL ONE (09:30)
[2019-02-05] MEDS: fentaNYL citrate 100 MCG/2 ML VIAL IV PRN ×5 (09:58→10:20)
--- NOTE | 2019-02-05 10:53 | Anesthesiology Progress Note ---
Date of Service February 05, 2019 Anesthesia Post Procedure Vital Signs Vital Signs: Temp Pulse Pulse Resp BP BP Pulse Ox 02/05/19 10:30 36.4 C L 65 18 122/65 96 02/05/19 10:20 67 14 118/59 L 96 02/05/19 10:10 52 L 16 129/63 98 02/05/19 10:00 64 16 121/61 98 02/05/19 09:50 58 L 16 117/63 96 02/05/19 09:44 37.1 C 64 16 110/67 97 02/05/19 07:04 36.5 C 54 L 18 124/71 98 02/05/19 06:27 36.7 C 54 L 15 99/53 L 97 02/04/19 23:47 36.5 C 56 L 16 111/68 95 02/04/19 15:28 36.4 C L 18 147/93 H 97 Pain Intensity Left Abdomen: Pain Intensity: 5 Transfer of Care Handoff Completed per policy Notes Mental Status: alert / awake / arousable and participated in evaluation Patient Amnestic to Procedure: Yes Nausea / Vomiting: adequately controlled Pain: adequately controlled Airway Patency, RR, SpO2: stable & adequate BP & HR: stable & adequate Hydration State: stable & adequate Anesthetic Complications: no major complications apparent
[2019-02-05] MEDS ORDERED: ACETAMINOPHEN 325 MG TAB PO PRN (11:02)
[2019-02-05] MEDS: PIPERACILLIN/TAZOBACTAM 3.375 GM in DEXTROSE 5% 100 ML IV SCH ×3 (11:03→23:26)
[2019-02-05] MEDS: HYDROmorphone INJ 0.5 MG/0.5 ML SYR IV PRN ×3 (12:15→19:53)
--- NOTE | 2019-02-05 13:42 | Operative Report ---
DATE OF OPERATION: 02/05/2019 PREOPERATIVE DIAGNOSES: Acute cholecystitis, cholelithiasis. POSTOPERATIVE DIAGNOSES: Acute cholecystitis, cholelithiasis. OPERATION: Laparoscopic cholecystectomy, intraoperative cholangiogram. SURGEON: Sindhu Carmen MD [place] OPERATOR: Nini Cid PA-C ANESTHESIA: General. ESTIMATED BLOOD LOSS: About 30 mL. FINDINGS: Significant inflammation on the gallbladder, gallbladder wall thickening, edema. COMPLICATIONS: None. INDICATIONS FOR THE PROCEDURE: This is a 39-year-old gentleman who was admitted to hospital for acute cholecystitis with gallstone and I recommend to do the laparoscopic cholecystectomy, possible open, possible cholangiogram. I did talk to the patient about the benefit and risk, alternate procedure. I indicated the risks may include but not limited to such as bleeding, infection, injury to common bile duct, injury to bowel, may need ERCP, even . The patient understands. He signed informed consent and I answered all questions. DETAILS OF PROCEDURE: We brought the patient to the OR, put the patient in the supine position. The patient received SCD on bilateral legs to prevent DVT. Also, the patient received 3.375 grams of Zosyn IV for prophylactic antibiotic. The patient received general anesthesia without difficulty. The abdomen was prepped and draped in routine sterile fashion. After time out, I injected local anesthesia by using 1% lidocaine mixed with 0.5% Marcaine just above umbilicus. Then, I made a small incision just above the umbilicus, opened fascia and opened peritoneum under direct vision, put a Saji trocar in, connected to CO2 to create pneumoperitoneum. Flow rate at 6-liter per minute. Pressure not more than 14 mmHg. Once we got a nice pneumoperitoneum, we put the camera in, looked around the abdomen. The patient had an abdominal ventral hernia repair and mesh. Mesh were located in anterior abdominal wall. Then, we looked around the abdomen showing normal finding on the liver. The gallbladder showed significant inflammation, gallbladder wall thickening, edema, confirmed diagnosis of acute cholecystitis. Then, we put another two 5 mm trocars on the right upper quadrant, one 12 trocar on the epigastric area. Once all trocars in, we used a grasper to hold the base of the gallbladder, put a direction to the diaphragm. Then, we peeled down; however, the omental covers the gallbladder. At this moment, we chose a Acevedo clamp to clamp the pathway of the gallbladder and connect to the catheter to gallbladder, I injected the contrast dye into bladder by using Coomer's technique and we used the fluoro to take a picture and only flow is contrast dye in the gallbladder and looked like they cystic duct was blocked. At this moment, we removed the Acevedo clamp and we used another grasper to hold the pouch of the gallbladder, put a latter to explore the triangle of Calot. The cystic duct was identified and mobilized. I put two 1 mm metal clips on the proximal cystic duct, one on the distal cystic duct. I then used a scissor for transection of cystic duct, rechecked and no bile leak. Then, we identified the cystic artery and mobilized. We put two 5 mm metal clips on the proximal cystic artery, one on the distal cystic duct artery. We used a scissor for transection of cystic duct artery. Then, we used the Bovie to take down the gallbladder from the liver bed. Then, we removed the gallbladder through the catch bag and then we reinserted Saji trocar in, connected to CO2 to create pneumoperitoneum, again looked around the abdomen, no bile leak and no active bleeding from the liver bed and based on the patient had significant inflammation on the gallbladder, I decided to put one 10 mm ELOY drainage in. Once all ELOY drainage in, we removed the trocar under direct vision. No active bleeding from the trocar site. Pneumoperitoneum was released. I closed the umbilical incision, fascial layer by using #1 Vicryl [id number] x3 and closed the subcutaneous layer by using 2-0 Vicryl interruptedly, closed skin by using 4-0 Vicryl continuous running, closed the epigastrium incision, fascial layer by using #1 Vicryl [id number] x2, subcutaneous layer by using 2-0 Vicryl interruptedly and closed skin by using 4-0 Vicryl interruptedly. We closed another two 5 mm trocar site skin only by using 4-0 Vicryl. Also, we used a 0 nylon, fixed the ELOY drain around the skin and then we put the dressing on. The patient tolerated the procedure well. All instrument, needle and sponge count correct x2 at the end of case. The patient transferred to recovery room in stable condition. After the procedure, I did talk to the patient about the OR finding and procedure we did. The patient understands. The specimen sent to pathology. I attest to the content of the Intraoperative Record and any orders documented therein. Any exceptions are noted below. FOREIGND
[2019-02-05] MEDS: LACTATED RINGER'S 1,000 ML IV SCH (14:57)
[2019-02-05] MEDS: OXYCODONE/ACETAMINOPHEN 5mg/325mg TAB PO PRN ×2 (18:20→23:25)
[2019-02-06] MEDS: HYDROmorphone INJ 0.5 MG/0.5 ML SYR IV PRN ×3 (00:29→07:41)
[2019-02-06 07:24] LABS: Basophils # (auto) 0.01 K/uL (0-0.2); Basophils % (auto) 0.1 %; Eosinophils # (auto) 0.22 K/uL (0-0.5); Eosinophils % (auto) 2.3 %; Hematocrit (blood only) 35.9 % (42-52); Hemoglobin 12.5 g/dL (14.0-18.0); Immature Granulocytes # (auto) 0.01 K/uL (0.00-0.02); Immature Granulocytes % (auto) 0.1 %; Lymphocytes # (auto) 1.79 K/uL (1.2-3.4); Lymphocytes % (auto) 18.9 %; Mean Corpuscular Hgb Conc 34.8 g/dL (32-36); Mean Corpuscular Volume 83.9 fL (80-100); Mean Platelet Volume 10.6 fL (7.4-10.4); Monocytes # (auto) 0.59 K/uL (0.11-0.59); Monocytes % (auto) 6.2 %; Neutrophils # (auto) 6.86 K/uL (1.4-6.5); Neutrophils % (auto) 72.4 %; Platelet Count 195 K/uL (130-400); RDW Coefficient of Variation 13.1 % (11.5-14.5); RDW Standard Deviation 39.7 fL (36.4-46.3); Red Blood Count 4.28 M/uL (4.7-6.1); White Blood Count 9.48 K/uL (4.8-10.8)
[2019-02-06] MEDS: PIPERACILLIN/TAZOBACTAM 3.375 GM in DEXTROSE 5% 100 ML IV SCH (07:39)
[2019-02-06 07:53] LABS: Albumin Level 3.2 gm/dl (3.4-5.0); BUN Creatinine Ratio 11.8 (10-20); Bilirubin,Total 0.7 mg/dl (0.2-1); Calcium 8.6 mg/dl (8.5-10.1); Est GFR (African American) 132.3; Est GFR (Non-African American) 114.1; Potassium 3.6 mmol/L (3.5-5.1)
[2019-02-06 07:54] LABS: Albumin Globulin Ratio 1.1 (0.9-2); Globulin 2.9 gm/dl (2.5-4.0); Total Protein 6.1 gm/dl (6.4-8.2)
--- NOTE | 2019-02-06 10:34 | Surgery Progress Note ---
Date of Service February 06, 2019 Assessment & Plan (1) Acute cholecystitis: POD # 1 s/p lap bea -vitals stable, afebrile - post op pain moderate to severe, not well controlled, still using Dilaudid - no n/v - + cough Plan: Add toradol IV for pain, add 2 tabs Percocet, try to limit Dilaudid continue low fat diet ambulate hallway continue iV abx Mucinex for cough SCDs for DVT prophylaxis Dr. Carmen to see this afternoon If pain not controlled, Dr. Barros covering this weekend. I ( Dr. Carmen) saw pt, I agree with the plan, pt can be discharged home tomorrow or Saturday, the ELOY can be removed before D/C home, Thanks, Subjective moderate pain, still taking IV Dilaudid every 3 hours no n/v, tolerating diet no chest pain/shortness of breath had not ambulated hallway Coughing with greenish/brown sputum Physical Exam Constitutional: WD/WN, vitals as above well developed and well nourished; no acute distress ENMT: external ear and nose normal, oropharynx normal Neck: trachea midline, no thyromegaly Respiratory: normal respiratory effort, lungs clear to auscultation normal respiratory effort; no respiratory distress Cardiovascular: RRR, no murmur, no edema Rate/Rhythm: regular rate and regular rhythm Heart Sounds: normal S1 and normal S2 Gastrointestinal (Abdomen): normal bowel sounds, soft, nontender, no hepatosplenomegaly Inspection/Auscultation: abdomen normal to inspection, + abdomen distended (mild) and + abdominal surgical drain present (serosanguineous) Percussion/Palpation: + abdomen tender, + guarding (RUQ at drain site) and abdomen soft; abdomen not rigid Skin: no rashes, warm and dry Neurologic: patellar DTR's 2+ bilat, sensation intact Psychiatric: A+Ox3, euthymic affect Lymphatic: no cervical or axillary lymphadenopathy Results & Data Vital Signs (Past 12 Hours) Vital Signs Temp Pulse Pulse Resp BP BP Pulse Ox 02/06/19 08:25 36.6 C 60 22 133/72 96 02/06/19 08:05 36.6 C 56 L 18 133/72 96 02/06/19 02:36 36.6 C 59 L 15 104/60 94 02/05/19 23:23 36.6 C 58 L 15 113/62 96 Laboratory Results 02/06/19 02/06/19 Range/Units 07:01 07:01 WBC 9.48 (4.8-10.8) K/uL RBC 4.28 L (4.7-6.1) M/uL Hgb 12.5 L (14.0-18.0) g/dL Hct 35.9 L (42-52) % MCV 83.9 (80-100) fL MCH 29.2 (25-34) pg MCHC 34.8 (32-36) g/dL RDW Std Deviation 39.7 (36.4-46.3) fL RDW Coeff of Edward 13.1 (11.5-14.5) % Plt Count 195 (130-400) K/uL MPV 10.6 H (7.4-10.4) fL Immature Gran % (Auto) 0.1 % Neut % (Auto) 72.4 % Lymph % (Auto) 18.9 % [place] % (Auto) 6.2 % Eos % (Auto) 2.3 % Baso % (Auto) 0.1 % Immature Gran # (Auto) 0.01 (0.00-0.02) K/uL Neut # (Auto) 6.86 H (1.4-6.5) K/uL Lymph # (Auto) 1.79 (1.2-3.4) K/uL [place] # (Auto) 0.59 (0.11-0.59) K/uL Eos # (Auto) 0.22 (0-0.5) K/uL Baso # (Auto) 0.01 (0-0.2) K/uL Sodium 139 (136-145) mmol/L Potassium 3.6 (3.5-5.1) mmol/L Chloride 107 (98-107) mmol/L Carbon Dioxide 29 (21-32) mmol/L Anion Gap 3.0 (3-11) BUN 9 (7-18) mg/dl Creatinine 0.80 (0.6-1.4) mg/dl Est Cr Clr Drug Dosing 175.0 ml/min Est GFR ( Amer) 132.3 Est GFR (Non-Af Amer) 114.1 BUN/Creatinine Ratio 11.8 (10-20) Glucose 92 (70-99) mg/dl Calcium 8.6 (8.5-10.1) mg/dl Total Bilirubin 0.7 (0.2-1) mg/dl AST 30 (15-37) U/L ALT 63 (12-78) U/L Alkaline Phosphatase 62 (45-117) U/L Total Protein 6.1 L (6.4-8.2) gm/dl Albumin 3.2 L (3.4-5.0) gm/dl Globulin 2.9 (2.5-4.0) gm/dl Albumin/Globulin Ratio 1.1 (0.9-2)
[2019-02-06] MEDS: KETOROLAC 30 MG/ML VIAL IV PRN ×2 (11:32→19:20)
[2019-02-06] MEDS: OXYCODONE/ACETAMINOPHEN 5mg/325mg TAB PO PRN ×2 (12:17→16:58)
[2019-02-06] MEDS: guaiFENesin 600 MG TABCR PO SCH (20:49)
[2019-02-07] MEDS: OXYCODONE/ACETAMINOPHEN 5mg/325mg TAB PO PRN ×2 (00:23→10:04)
[2019-02-07] MEDS: LACTATED RINGER'S 1,000 ML IV SCH ×2 (02:04→06:17)
--- NOTE | 2019-02-07 06:58 | Progress Note ---
Date of Service February 07, 2019 Assessment & Plan (1) Acute cholecystitis: will d/c drain and d/c pt home Subjective stable, comfortable- wants to go home Physical Exam Physical Exam: vitals stable- drain in place Results & Data Vital Signs (Past 12 Hours) Vital Signs Temp Pulse Resp BP Pulse Ox 02/06/19 23:10 36.7 C 69 16 118/72 98
[2019-02-07 07:43] VITALS: BP 111/68; TEMP 97.7; O2SAT 95
[2019-02-07 08:20] VITALS: PULSE 60
[2019-02-07] MEDS: guaiFENesin 600 MG TABCR PO SCH (09:59)
== END 2019-02-07 11:45 | disposition home or self-care (01) ==
LOC: ED 03:50 → 3N 03:50